=== PATIENT | female | born 1985 | race Caucasian/White ===

== ENCOUNTER 2024-09-08 08:59 | Outpatient (RCR) | payer BC, SELFPAY | END 2024-09-09 10:42 | disposition home or self-care (01) | LOC: PT 08:59 | PROVIDERS: PCP Family Medicine; Visit Provider Family Medicine | DX: M79.7 Fibromyalgia (principal); G43.909 Migraine, unspecified, not intractable, without status migrainosus | CPT/HCPCS: 97750 ==

== ENCOUNTER 2025-01-13 14:43 | Outpatient (OUT) | payer BC, SELFPAY ==
--- OUTSIDE RECORDS SUMMARY | 2025-01-13 14:45 | XMS_ITS | Encounter Summary ---
Author Organization [facility] Address [address] [place] [address] Care Team Providers Care Equipment Man Name Role Phone Evangelist Saucedo MD Primary Care Provider [phone] Evangelist Saucedo MD Unavailable Evangelist Saucedo MD Unavailable Encounter Details Date Type Department Care Team (Late Contact Info) Description 10/18/2024 Abstract [facility] [place] [facility] 112 [facility] 110 [place] [address] Evangelist Saucedo MD 112 [facility] 110 [place] [address] Social History Tobacco Use Types Packs/Day Years Used Date Smoking Tobacco: Every Day Cigarettes Smokeless Tobacco: Never Comments:6-10 cigarettes/day Alcohol Use Standard Drinks/Week Comments Yes 0 (1 standard drink = 0.6 oz pure alcohol) 1-2 drinks 2-4 times/month, 1-2 cups per day(soda) PHQ-2 Answer Date Recorded Patient Health Questionnaire-2 Score 0 09/21/2024 Comments Unknown Sex and Gender Information Value Date Recorded Sex Assigned at Not on file Legal Sex Female 7:11 PM EDT Gender Identity Not on file Sexual Orientation Not on file documented as of this encounter Plan of Treatment Upcoming Encounters Date Type Department Care Team (Late Contact Info) Description 01/24/2025 2:30 PM EDT Ancillary Procedure [facility] [address] [place] [address] [place] [address] 01/24/2025 3:00 PM EDT Ancillary Procedure [facility] [address] [place] [address] [place] [address] 03/15/2025 3:30 PM EST Office [facility] [place] [facility] [address] [facility] 110 [place] [address] Evangelist Saucedo MD [address] [facility] 110 [place] [address] documented as of this encounter Visit Diagnoses Not on filedocumented in this encounter Care Teams Equipment Man Relationship Specialty Start Date End Date Evangelist Saucedo MD [address] [facility] 110 [place] [address] PCP - General Family Medicine 09/10/22 Evangelist Saucedo MD [address] [facility] 110 [place] [address] PCP - [facility] 07/27/20 Evangelist Saucedo MD [address] [facility] 110 [place] [address] Family Medicine 09/10/22 documented as of this encounter
--- OUTSIDE RECORDS SUMMARY | 2025-01-13 14:45 | XMS_ITS | Encounter Summary ---
Author Organization [facility] Address [address] [place] [address] Care Team Providers Care Performance Improvement Analyst Name Role Phone Evangelist Saucedo MD Primary Care Provider [phone] Evangelist Saucedo MD Unavailable Evangelist Saucedo MD Unavailable Encounter Details Date Type Department Care Team (Late Contact Info) Description 02/11/2023 Abstract [facility] [place] [facility] 112 [facility] 110 [place] [address] Evangelist Saucedo MD 112 [facility] 110 [place], [place] [id number] Social History Tobacco Use Types Packs/Day Years Used Date Smoking Tobacco: Every Day Cigarettes Comments:6-10 cigarettes/day Alcohol Use Standard Drinks/Week Comments Yes 0 (1 standard drink = 0.6 oz pure alcohol) 1-2 drinks 2-4 times/month, 1-2 cups per day(soda) PHQ-2 Answer Date Recorded Patient Health Questionnaire-2 Score 1 12/04/2022 Comments Unknown Sex and Gender Information Value Date Recorded Sex Assigned at Not on file Legal Sex Female 7:11 PM EDT Gender Identity Not on file Sexual Orientation Not on file documented as of this encounter Plan of Treatment Upcoming Encounters Date Type Department Care Team (Late Contact Info) Description 01/24/2025 2:30 PM EDT Ancillary Procedure [facility] [address] [place] [address] [place] [address] 01/24/2025 3:00 PM EDT Ancillary Procedure [facility] [address] [place] [address] [place] [id number] 03/15/2025 3:30 PM EST [facility] [place] [facility] [address] [facility] 110 [place] [address] Evangelist Saucedo MD [address] [facility] 110 [place] [address] documented as of this encounter Visit Diagnoses Not on filedocumented in this encounter Care Teams Performance Improvement Analyst Relationship Specialty Start Date End Date Evangelist Saucedo MD [address] [facility] 110 [place] [address] PCP - General Family Medicine 09/10/22 Evangelist Saucedo MD [address] [facility] 110 [place] [address] PCP - [facility] 07/27/20 Evangelist Saucedo MD [address] [facility] 110 [place] [address] Family Medicine 09/10/22 documented as of this encounter
--- OUTSIDE RECORDS SUMMARY | 2025-01-13 14:45 | XMS_ITS | Encounter Summary ---
Author Organization [facility] Address [address] [place] [address] Care Team Providers Care Field Producer Name Role Phone Evangelist Saucedo MD Primary Care Provider [phone] Evangelist Saucedo MD Unavailable Evangelist Saucedo MD Unavailable Encounter Details Date Type Department Care Team (Late st Contact Info) Description 09/16/2022 Abstract [facility] [address] [id number] Alexander Nunez DO [address] [address] Social History Tobacco Use Types Packs/Day Years Used Date Smoking Tobacco: Every Day Cigarettes Alcohol Use Standard Drinks/Week Comments Yes 0 (1 standard drink = 0.6 oz pure alcohol) Caffeine intake 1-2 cups per day(soda) Comments Unknown Sex and Gender Information Value Date Recorded Sex Assigned at Not on file Legal Sex Female 7:11 PM EDT Gender Identity Not on file Sexual Orientation Not on file documented as of this encounter Plan of Treatment Upcoming Encounters Date Type Department Care Team (Late st Contact Info) Description 01/24/2025 2:30 PM EDT Ancillary Procedure [facility] [address] [place] [address] [place] [address] 01/24/2025 3:00 PM EDT Ancillary Procedure [facility] [address] [place] [address] [place] [address] 03/15/2025 3:30 PM EST [facility] [place] [facility] [address] [facility] 110 [place] [address] Evangelist Saucedo MD [address] [facility] 110 [place] [address] documented as of this encounter Visit Diagnoses Not on filedocumented in this encounter Care Teams Field Producer Relationship Specialty Start Date End Date Evangelist Saucedo MD [address] [facility] 110 [place] [address] PCP - General Family Medicine 09/10/22 Evangelist Saucedo MD [address] [facility] 110 [place] [address] PCP - [facility] 07/27/20 Evangelist Saucedo MD [address] [facility] 110 [place] [address] Family Medicine 09/10/22 documented as of this encounter
--- OUTSIDE RECORDS SUMMARY | 2025-01-13 14:45 | XMS_ITS | Encounter Summary ---
Author Organization [facility] Address [address] [place] [address] Care Team Providers Care Calender Inspector Name Role Phone Evangelist Saucedo MD Primary Care Provider [phone] Evangelist Saucedo MD Unavailable Evangelist Saucedo MD Unavailable Encounter Details Date Type Department Care Team (Late Contact Info) Description 12/11/2022 Abstract [facility] [place] [facility] 112 [facility] 110 [place] [address] Evangelist Saucedo MD 112 [facility] 110 [place] [address] Social History Tobacco Use Types Packs/Day Years Used Date Smoking Tobacco: Every Day Cigarettes Tobacco Cessation:Ready to Q uit: Not Asked; Counseling Given: Not Answered Comments:6-10 cigarettes/day Alcohol Use Standard Drinks/Week Comments [...] Imaging [address] [place] [address] [place] [address] 01/24/2025 3:00 PM EDT Ancillary Procedure [facility] [address] [facility] 130 [place] [address] 03/15/2025 3:30 PM EST Office Visit [facility] [place] [facility] [address] [facility] 110 [place] [address] Evangelist Saucedo MD [address] [facility] 110 [place] [address] documented as of this encounter Visit Diagnoses Not on filedocumented in this encounter Care Teams Calender Inspector Relationship Specialty Start Date End Date Evangelist Saucedo MD [address] [facility] 110 [place] [address] PCP - General Family Medicine 09/10/22 Evangelist Saucedo MD [address] [facility] 110 [place] [address] PCP - [facility] 07/27/20 Evangelist Saucedo MD [address] [facility] 110 [place] [address] Family Medicine 09/10/22 documented as of this encounter
--- OUTSIDE RECORDS SUMMARY | 2025-01-13 14:45 | XMS_ITS | Encounter Summary ---
Author Organization [facility] Address [address] [place] [address] Care Team Providers Care Tip Out Worker Name Role Phone Evangelist Saucedo MD Primary Care Provider [phone] Evangelist Saucedo MD Unavailable Evangelist Saucedo MD Unavailable Encounter Details Date Type Department Care Team (Late Contact Info) Description 08/23/2024 Abstract [facility] [place] [facility] 112 [facility] 110 [place] [address] Evangelist Saucedo MD [address] [facility] 110 [place], [place] [address] Social History Tobacco Use Types Packs/Day Years Used Date Smoking Tobacco: Every Day Cigarettes Comments:6-10 cigarettes/day Alcohol Use Standard Drinks/Week Comments Yes 0 (1 standard drink = 0.6 oz pure alcohol) 1-2 drinks 2-4 times/month, 1-2 cups per day(soda) PHQ-2 Answer Date Recorded Patient Health Questionnaire-2 Score 1 08/18/2024 Comments Unknown Sex and Gender Information Value Date Recorded Sex Assigned at Not on file Legal Sex Female 7:11 PM EDT Gender Identity Not on file Sexual Orientation Not on file documented as of this encounter Plan of Treatment Upcoming Encounters Date Type Department Care Team (Late Contact Info) Description 01/24/2025 2:30 PM EDT Ancillary Procedure [facility] [address] [place] [address] [place] [address] 01/24/2025 3:00 PM EDT Ancillary Procedure [facility] [address] [place] [address] [place] [address] 03/15/2025 3:30 PM EST [facility] [place] [facility] [address] [facility] 110 [place] [address] Evangelist Saucedo MD [address] [facility] 110 [place] [address] documented as of this encounter Visit Diagnoses Not on filedocumented in this encounter Care Teams Tip Out Worker Relationship Specialty Start Date End Date Evangelist Saucedo MD [address] [facility] 110 [place] [address] PCP - General Family Medicine 09/10/22 Evangelist Saucedo MD [address] [facility] 110 [place] [address] PCP - [facility] 07/27/20 Evangelist Saucedo MD [address] [facility] 110 [place] [address] Family Medicine 09/10/22 documented as of this encounter
--- OUTSIDE RECORDS SUMMARY | 2025-01-13 14:45 | XMS_ITS | Encounter Summary ---
Author Organization [facility] Address [address] [facility] [place] [address] Care Team Providers Care Engraver Name Role Phone Evangelist Saucedo MD Primary Care Provider [phone] Evangelist Saucedo MD Unavailable Evangelist Saucedo MD Unavailable Reason for Visit * Reason Comments Med Refill Encounter Details Date Type Department Care Team (Late st Contact Info) Description 01/03/2025 Refill [facility] [address] [facility] 110 [place] [address] Cristiane Huffman PA 112 [facility] 110 [place] [address] Fibromyalgia Social History Tobacco Use Types Packs/Day Years Used Date Smoking Tobacco: Every Day Cigarettes Smokeless Tobacco: Never Comments:6-10 cigarettes/day Alcohol Use Standard Drinks/Week Comments Yes 0 (1 standard drink = 0.6 oz pure alcohol) 1-2 drinks 2-4 times/month, 1-2 cups per day(soda) PHQ-2 Answer Date Recorded Patient Health Questionnaire-2 Score 2 12/15/2024 Comments Unknown Sex and Gender Information Value Date Recorded Sex Assigned at Not on file Legal Sex Female 7:11 PM EDT Gender Identity Not on file Sexual Orientation Not on file documented as of this encounter Miscellaneous Notes * Telephone Encounter - AURORA Harris - 01/03/2025 10:44 AM EDT OARRS reviewed, Rx sent into patient's pharmacy. documented in this encounter Plan of Treatment Upcoming Encounters Date Type Department Care Team (Late st Contact Info) Description 01/24/2025 2:30 PM EDT Ancillary Procedure [facility] [address] [place] [address] [place] [address] 01/24/2025 3:00 PM EDT Ancillary Procedure [facility] [address] [place] 130 [place] [address] 03/15/2025 3:30 PM EST [facility] [place] [facility] [address] [facility] 110 [place] [address] Evangelist Saucedo MD [address] [place] 110 [place] [address] documented as of this encounter Visit Diagnoses Diagnosis Fibromyalgia Unspecified myalgia and myositis documented in this encounter Care Teams Engraver Relationship Specialty Start Date End Date Evangelist Saucedo MD [address] [facility] 110 [place] [address] PCP - General Family Medicine 09/10/22 Evangelist Saucedo MD [address] [facility] 110 [place] [address] PCP - [facility] 07/27/20 Evangelist Saucedo MD [address] [facility] 110 [place] [address] Family Medicine 09/10/22 documented as of this encounter
--- OUTSIDE RECORDS SUMMARY | 2025-01-13 14:45 | XMS_ITS | Encounter Summary ---
Author Organization [facility] Address [address] [facility] [place] [address] Care Team Providers Care Job Analysis Manager Name Role Phone Evangelist Saucedo MD Primary Care Provider [phone] Evangelist Saucedo MD Unavailable Evangelist Saucedo MD Unavailable Reason for Visit * Reason Comments Med Refill Encounter Details Date Type Department Care Team (Late st Contact Info) Description 10/17/2023 [facility] [address] [facility] 110 [place] [address] Cristiane Huffman, PA 112 [facility] 110 [place] [address] Systemic lupus erythematosus, unspecified SLE type, unspecified organ involvement status (HCC) Social History Tobacco Use Types Packs/Day Years [...] encounter Miscellaneous Notes * Telephone Encounter - Renetta Lombardo - 10/27/2023 1:25 PM EDT Unable to contact letter sent * Telephone Encounter - Renetta Lombardo - 10/20/2023 10:36 AM EDT Lvm on phi=one her number says it is disconnneted * Telephone Encounter - AURORA Harris - 10/20/2023 10:00 AM EDT OARRS reviewed, Rx sent into patient's pharmacy. Please help pt get rescheduled for her NS appt, she is a month overdue for a follow up. Last refilluntil seen. documented in this encounter Plan of Treatment Upcoming Encounters Date Type Department Care Team (Late st Contact Info) Description 01/24/2025 2:30 PM EDT Ancillary Procedure [facility] [address] [facility] [place] [place] [address] 01/24/2025 3:00 PM EDT Ancillary Procedure [facility] [address] [place] [address] [place] [address] 03/15/2025 3:30 PM EST Office Visit [facility] [place] [facility] 112 [facility] 110 [place] [address] Evangelist Saucedo MD [address] [facility] 110 [place] [address] documented as of this encounter Visit Diagnoses Diagnosis Systemic lupus erythematosus, unspecified SLE type, unspecified organ involvement status (HCC) documented in this encounter Care Teams Job Analysis Manager Relationship Specialty Start Date End Date Evangelist Saucedo MD [address] [facility] 110 [place] [address] PCP - General Family Medicine 09/10/22 Evangelist Saucedo MD [address] [facility] 110 [place] [address] PCP - [place] 07/27/20 Evangelist Saucedo MD [address] [facility] 110 [place] [address] Family Medicine 09/10/22 documented as of this encounter
--- OUTSIDE RECORDS SUMMARY | 2025-01-13 14:45 | XMS_ITS | Clinical Summary ---
Author Organization [facility] Healthcare Address [address] [place] [address] Care Team Providers Care Food Dehydrator Operator Name Role Phone Evangelist Saucedo MD Primary Care Provider [phone] Evangelist Saucedo MD Unavailable Evangelist Saucedo MD Unavailable Allergies Active Allergy Reactions Criticality Noted Date Comments Bupropion Rash,Unknown Low 04/02/2021 Hydrocodone GI intolerance,Unknown 04/02/2021 Sulfa Antibiotics Unknown 09/18/2022 Medications cholecalciferol (Vitamin D3) 25 MCG (1000 UT) tablet 1 (one) time each day at the same time. Active estradiol (Estrace) 1 MG tablet 1 (one) time each day at the same time. 03/28/20 22 Active estrogens, conjugated, (Premarin) 0.625 MG tablet Take 0.625 mg by mouth 1 (one) time each day at the same time. 1/2 tab daily as needed 03/28/20 22 Active fluticasone (Flonase) 50 MCG/ACT nasal spray 1 (one) time each day at the same time. 04/02/20 21 Active zinc 30 MG tablet 1 (one) time each day at the same time. Active atorvastatin (Lipitor) 20 MG tabletIndications :Mixed hyperlipidemia Take 1 tablet (20 mg) by mouth Daily 100 tablet 3 02/16/20 24 2024 Active metoprolol succinate XL (Toprol-XL) 50 MG 24 hr tabletIndications :Anxiety TAKE 1 TABLET BY MOUTH EVERY DAY 100 tablet 3 05/12/19 25 Active gabapentin (Neurontin) 400 MG capsuleIndication s:Fibromyalgia TAKE 1 CAPSULE IN THE MORNING, EVENING, AND BEFORE BEDTIME 270 capsule 3 05/24/19 25 Active fremanezumab (Ajovy) 225 MG/1.5ML auto-injectorIndi cations:Intractab le chronic migraine without aura and with status migrainosus INJECT 1 PEN UNDER SKIN ONCE EVERY 30 DAYS 1 each 11 06/16/19 25 Active ondansetron ODT (Zofran-ODT) 4 MG disintegrating tabletIndications :Nausea DISSOLVE 1 TABLET ON THE TONGUE 3 TIMES A DAY 18 tablet 4 07/14/19 25 Active Nurtec 75 MG tablet dispersibleIndica tions:Intractable chronic migraine with aura with status migrainosus PLACE 1 TABLET UNDER THE TONGUE EVERY OTHER DAY NEEDED FOR MIGRAINES 8 tablet 5 07/14/19 25 Active venlafaxine XR (Effexor XR) 150 MG 24 hr capsuleIndication s:Recurrent major depressive disorder, in partial remission Take 2 capsules (300 mg) by mouth Daily Do not crush or chew. 60 capsule 08/19/19 25 2025 Active esomeprazole (NexIUM) [address] capsuleIndication s:Gastro-esophage al reflux disease without esophagitis Take 1 capsule (40 mg) by mouth in the morning. Take before meals. Do not open capsule. 90 capsule 3 12/16/19 25 2025 Active predniSONE (Deltasone) 10 MG tabletIndications :Fibromyalgia TAKE 1 TABLET (10 MG) BY MOUTH DAILY. 30 tablet 12/22/19 25 Active traMADol (Ultram) 50 MG tabletIndications :Systemic lupus erythematosus, unspecified SLE type, unspecified organ involvement status (HCC) Take 1 tablet (50 mg) by mouth every 4 (four) hours if needed for severe pain for up to 14 days 84 tablet 12/29/19 25 Active carisoprodol (Soma) 350 MG tabletIndications :Fibromyalgia Take 1 tablet (350 mg) by mouth 4 (four) times a day as needed for muscle spasms for up to 14 days 56 tablet 01/04/20 25 2024 Active clonazePAM (KlonoPIN) 1 MG tabletIndications :Adjustment disorder with anxiety Take 1 tablet (1 mg) by mouth 2 (two) times a day as needed for anxiety 60 tablet 01/06/20 25 2024 Active Ascorbic Acid (Vitamin C) 500 MG capsule as directed Orally 2024 Discontinued esomeprazole (NexIUM) [address] capsuleIndication s:Gastroesophagea l reflux disease, unspecified whether esophagitis present Take 1 capsule (20 mg) by mouth in the morning. Take before meals. 100 capsule 3 08/20/19 25 2024 Discontinued(I neffective) predniSONE (Deltasone) 10 MG tabletIndications :Fibromyalgia TAKE 1 TABLET (10 MG) BY MOUTH DAILY. 30 tablet 10/19/19 25 2024 Discontinued traMADol (Ultram) 50 MG tabletIndications :Systemic lupus erythematosus, unspecified SLE type, unspecified organ involvement status (HCC) Take 1 tablet (50 mg) by mouth every 4 (four) hours if needed for severe pain for up to 14 days 84 tablet 12/04/19 25 2024 Discontinued(R eorder) carisoprodol (Soma) 350 MG tabletIndications :Fibromyalgia Take 1 tablet (350 mg) by mouth 4 (four) times a day as needed for muscle spasms for up to 14 days 56 tablet 12/04/19 25 2024 Discontinued clonazePAM (KlonoPIN) 1 MG tabletIndications :Adjustment disorder with anxiety Take 1 tablet (1 mg) by mouth in the morning and 1 tablet (1 mg) before bedtime. 60 tablet 12/10/19 25 2024 Discontinued traMADol (Ultram) 50 MG tabletIndications :Systemic lupus erythematosus, unspecified SLE type, unspecified organ involvement status (HCC) Take 1 tablet (50 mg) by mouth every 4 (four) hours if needed for severe pain for up to 14 days 84 tablet 12/16/19 25 2024 Discontinued carisoprodol (Soma) 350 MG tabletIndications :Fibromyalgia TAKE 1 TABLET BY MOUTH 4 TIMES A DAY NEEDED FOR MUSCLE SPASMS FOR UP TO 14 DAYS 56 tablet 12/21/19 25 2024 Discontinued Active Problems Problem Noted Date Diagnosed Date Migraine headache 06/12/2023 Assessment & Plan (02/16/2024 9:39 AM EDT): Do the Nurtec every other day towards end of month Anxiety 11/26/2022 Assessment & Plan (06/21/2024 9:30 AM EST): Patient's Medicine is effective at controlling symptoms at current dose and frequency. PDMP reviewed with no evidence of overuse and abuse D/W patient to avoid use of benzodiazepines when consuming alcohol Advised against operating heavy machinery and driving long distances while on medicines. Assessment & Plan (02/16/2024 9:35 AM EDT): Patient's Medicine is effective at controlling symptoms at current dose and frequency. PDMP reviewed with no evidence of overuse and abuse D/W patient to avoid use of benzodiazepines when consuming alcohol Advised against operating heavy machinery and driving long distances while on medicines. Assessment & Plan (01/27/2023 10:08 AM EDT): Patient's Medicine is effective at controlling symptoms at current dose and frequency. PDMP reviewed with no evidence of overuse and abuse D/W patient to avoid use of benzodiazepines when consuming alcohol Advised against operating heavy machinery and driving long distances while on medicines. Assessment & Plan (11/26/2022 11:56 AM EDT): Consider Paxil F/U week of January Recurrent major depressive disorder, in partial remission 11/26/2022 Assessment & Plan (02/16/2024 9:35 AM EDT): This is a chronic medical condition that is stable since last assessment. No changes in treatment are suggested at this time. Continue Current meds. Assessment & Plan (11/26/2022 11:57 AM EDT): Sunlight and exercise Personal history of colonic polyps 10/17/2022 Blood in stool 10/17/2022 Adjustment disorder with anxiety 09/18/2022 Dysfunction of left eustachian tube 09/18/2022 Ear congestion 09/18/2022 Elevated antinuclear antibody (YANICK) level 2022 Assessment & Plan (01/27/2023 10:08 AM EDT): F/U with Rhematology Fibromyalgia 09/18/2022 Hot flashes 09/18/2022 Assessment & Plan (11/26/2022 11:57 AM EDT): Black Cohash no relief Hot flashes due to menopause 09/18/2022 Menopausal and postmenopausal disorder Other insomnia 09/18/2022 Smoker 09/18/2022 Status post hysterectomy 09/18/2022 Systemic lupus erythematosus 09/18/2022 Tension headache 09/18/2022 Encounters Date Type Department Care Team Description 01/05/2025 Refill [facility] [address] [place] [address] [place] [address] Cristiane Huffman PA Adjustment disorder with anxiety 01/03/2025 Refill [facility] [place] [facility] [address] [place] [address] Cristiane Huffman PA Fibromyalgia 12/31/2024 Orders Only [facility] [place] [facility] [address] [place] [address] Evangelist Saucedo MD Abnormal mammogram of right breast; Abnormal ultrasound of breast 12/28/2024 Refill [facility] [place] [facility] [address] [place] [address] Cristiane Huffman PA Systemic lupus erythematosus, unspecified SLE type, unspecified organ involvement status (HCC) 12/21/2024 Refill [facility] [place] [facility] [address] [place] [address] Ghislaine Cain TRANSIT MIXER OPERATOR Fibromyalgia 12/21/2024 Abstract [facility] [facility] [address] [place] [address] Evangelist Saucedo MD 12/20/2024 Refill [facility] [address] [place] [address] Cristiane Huffman PA Fibromyalgia 12/15/2024 11:30 AM EDT Office Visit [facility] [facility] [address] [facility] [address] [place] [address] Ghislaine Cain NP Fibromyalgia (Primary Dx); Systemic lupus erythematosus, unspecified SLE type, unspecified organ involvement status (HCC); Chronic pain syndrome; Lumbar radiculopathy; Gastro-esophageal reflux disease without esophagitis 12/15/2024 Refill [facility] [place] [facility] [address] [facility] [address] [place] [address] Ghislaine Cain NP Systemic lupus erythematosus, unspecified SLE type, unspecified organ involvement status (HCC) 12/15/2024 Bamboo flowsheet [facility] [place] [facility] [address] [facility] [address] [place] [address] Ghislaine Cain NP 12/15/2024 Travel 12/09/2024 Refill [facility] [place] [facility] [address] [facility] [address] [place] [address] Evangelist Saucedo MD Adjustment disorder with anxiety 12/06/2024 Abstract [facility] [place] [facility] [address] [facility] [address] [place] [address] Evangelist Saucedo MD 12/03/2024 Refill [facility] [place] [facility] [address] [facility] [address] [place] [address] Cristiane Huffman PA Systemic lupus erythematosus, unspecified SLE type, unspecified organ involvement status (HCC) 12/02/2024 Refill [facility] [place] [facility] [address] [facility] [address] [place] [address] Cristiane Huffman, PA Fibromyalgia 12/02/2024 [facility] [place] [facility] [address] [facility] [address] [place] [address] Evangelist Saucedo MD Systemic lupus erythematosus, unspecified SLE type, unspecified organ involvement status (HCC) 11/16/2024 Refill [facility] [place] [facility] [address] [facility] [address] [place] [address] Cristiane Huffman PA Systemic lupus erythematosus, unspecified SLE type, unspecified organ involvement status (HCC); Fibromyalgia 11/09/2024 Refill [facility] [place] [facility] [address] [facility] [address] [place] [address] Evangelist Saucedo MD Adjustment disorder with anxiety 10/31/2024 Refill [facility] [place] [facility] [address] [place] [address] [place] [address] Cristiane Huffman PA Fibromyalgia; Systemic lupus erythematosus, unspecified SLE type, unspecified organ involvement status (HCC) 10/19/2024 Refill [facility] [place] [facility] [address] [facility] [address] [place] [address] Katya Hernandez MA Fibromyalgia 10/18/2024 Abstract [facility] [facility] [address] [facility] [address] [place] [address] Evangelist Saucedo MD 10/18/2024 Refill [facility] [place] [facility] [address] [facility] [address] [place] [address] Ghislaine Cain, TRANSIT MIXER OPERATOR Fibromyalgia 10/16/2024 Refill [facility] [place] [facility] [address] [facility] [address] [place] [address] Evangelist Saucedo MD Systemic lupus erythematosus, unspecified SLE type, unspecified organ involvement status (HCC) 10/14/2024 [facility] [place] [facility] [address] [facility] [address] [place] [address] Cristiane Huffman PA Fibromyalgia from Last 3 Months Immunizations Immunization Administration Dates Next Due Influenza, injectable, MDCK, preservative free, quadrivalent 01/04/2023,01/18/2022,03/06/2020 Influenza, injectable, quadr ivalent, preservative free 01/26/2022,02/13/2021 Moderna Bivalent Booster Vaccination 05/17/2022 Family History Medical History Relation Name Comments Hypertension Father Relation Name Status Comments Father Mother Alive Social History Tobacco Use Types Packs/Day Years Used Date Smoking Tobacco: Every Day Cigarettes Smokeless Tobacco: Never Tobacco Cessation:Ready to Q uit: Not Asked; Counseling Given: Yes Comments:6-10 cigarettes/day Alcohol Use Standard Drinks/Week Comments [...] on file Sexual Orientation Not on file Last Filed Vital Signs Vital Sign Reading Time Taken Comments Blood Pressure 128/80 12/15/2024 11:35 AM EDT Pulse 83 12/15/2024 11:35 AM EDT Temperature - - Respiratory Rate 16 12/15/2024 11:35 AM EDT Oxygen Saturation 99% 12/15/2024 11:35 AM EDT Inhaled Oxygen Concentration - - Weight 97.5 kg (215 lb) 12/15/2024 11:35 AM EDT Height 162.6 cm (5' 4 ) 12/15/2024 11:35 AM EDT Body Mass Index 36.9 12/15/2024 11:35 AM EDT Plan of Treatment Upcoming Encounters Date Type Department Care Team (Late st Contact Info) Description 01/24/2025 2:30 PM EDT Ancillary Procedure [facility] [address] [facility] [address] [place] [address] 01/24/2025 3:00 PM EDT Ancillary Procedure [facility] [address] [facility] [address] [place] [address] 03/15/2025 3:30 PM EST Office Visit [facility] [place] [facility] [address] [facility] 110 [place] [address] Evangelist Saucedo MD [address] [facility] 110 [place] [address] Health Maintenance Due Date Last Done Comments Influenza Vaccine (#1) 2024 3, 01/26/2022, 01/18/2022, Additional history exists Mammogram 07/14/2025 07/14/2024, 07/05/2024 Procedures Procedure Name Priority Date/Time Associated Diagnosis Comments BI MAMMOGRAM DIAGNOSTIC TOMOSYNTHESIS RIGHT Routine 07/14/2024 2:45 PM EDT Abnormal mammogram from Last 3 Months or Most Recently Relevant to Health Maintenance Results * Right diagnostic mammogram with tomosynthesis (07/14/2024 2:45 PM EDT) Anatomical Region Laterality Modality Breast Right Mammography 07/15/2024 3:24 PM EDT Impressions 07/15/2024 3:31 PM EDT Previously noted small asymmetric density in the inferomedial aspect of the right breast near the midline is again identified, likely representing a cyst when correlated with ultrasound study. When correlating all studies no convincing evidence of neoplasm. Follow-up diagnostic mammogram study of the right breast as well as ultrasound study of the right breast in 6 months recommended to assess stability. BIRADS 3 - Probably Benign Findings DENSITY: There are scattered areas of fibroglandular density. FOLLOW-UP: Diagnostic Mammogram in 6 Months, breast ultrasound in 6 months Board Certified Radiologists. Accredited by the ACR and FDA. MAMMOGRAPHY IS VERY IMPORTANT TO YOUR HEALTH. THE [employer] GUIDELINES RECOMMEND THAT WOMEN 40 YEARS OF AGE AND OLDER SHOULD HAVE A MAMMOGRAM EVERY YEAR. A REMINDER LETTER WILL BE SENT AT THE APPROPRIATE TIME. ELECTRONICALLY SIGNED BY: Zackary Rouse 07/15/2024 3:31 PM EDT EXAMINATION: BI MAMMOGRAM DIAGNOSTIC TOMOSYNTHESIS RIGHT CLINICAL HISTORY: abnormal mammogram TECHNIQUE: Diagnostic digital mammogram study of the right breast was performed with 2D and 3D tomosynthesis imaging. Study was compared to the screening mammogram study of the breasts dated 07/05/2024 and ultrasound study of the right breast dated 07/14/2024. FINDINGS: Coned-down compression views as well as true lateral view of the right breast were obtained. Previously noted 5 x 4 mm asymmetric density is again identified in the inferomedial aspect of the right breast near the midline. Ultrasound study demonstrates what is likely a small cyst at this level. Other possibility would be less likely. When correlating all studies no convincing evidence of neoplasm. Follow-up diagnostic mammogram study of the right breast as well as ultrasound study of the right breast in 6 months is recommended to assess stability. Partially visualized axillary lymph nodes are noted which appear grossly unremarkable. Procedure Note Vadim Mcwilliams MD - 07/15/2024 EXAMINATION: BI MAMMOGRAM DIAGNOSTIC TOMOSYNTHESIS RIGHT CLINICAL HISTORY: abnormal mammogram TECHNIQUE: Diagnostic digital mammogram study of the right breast wasperformed with 2D and 3D tomosynthesis imaging. Study was compared to thescreening mammogram study of the breasts dated 07/05/2024 and ultrasoundstudy of the right breast dated 07/14/2024. FINDINGS: Coned-down compression views as well as true lateral view of theright breast were obtained. Previously noted 5 x 4 mm asymmetric densityis again identified in the inferomedial aspect of the right breast nearthe midline. Ultrasound study demonstrates what is likely a small cyst atthis level. Other possibility would be less likely. When correlating allstudies no convincing evidence of neoplasm. Follow-up diagnostic mammogramstudy of the right breast as well as ultrasound study of the right breastin 6 months is recommended to assess stability. Partially visualized axillary lymph nodes are noted which appear grosslyunremarkable. IMPRESSION: Previously noted small asymmetric density in the inferomedial aspect ofthe right breast near the midline is again identified, likely representinga cyst when correlated with ultrasound study. When correlating all studiesno convincing evidence of neoplasm. Follow-up diagnostic mammogram study of the right breast as well asultrasound study of the right breast in 6 months recommended to assessstability. BIRADS 3 - Probably Benign Findings DENSITY: There are scattered areas of fibroglandular density. FOLLOW-UP: Diagnostic Mammogram in 6 Months, breast ultrasound in 6months Board Certified Radiologists. Accredited by the ACR and FDA. MAMMOGRAPHY IS VERY IMPORTANT TO YOUR HEALTH. THE V[employer]IAN CANCER SOCIETYGUIDELINES RECOMMEND THAT WOMEN 40 YEARS OF AGE AND OLDER SHOULD HAVE AMAMMOGRAM EVERY YEAR. A REMINDER LETTER WILL BE SENT AT THE APPROPRIATE TIME. ELECTRONICALLY SIGNED BY: Vadim Mcwilliams M.D. Evangelist Saucedo MD IMG BI PROCEDURES Final Result from Last 3 Months or Most Recently Relevant to Health Maintenance Insurance BCBS Care Teams Food Dehydrator Operator Relationship Specialty Start Date End Date Evangelist Saucedo MD [address] [facility] [address] [place] [address] PCP - General Family Medicine 09/10/22 Evangelist Saucedo MD [address] [facility] [address] [place] [address] PCP - [facility] 07/27/20 Evangelist Saucedo MD [address] [facility] [address] [place] [address] Family Medicine 09/10/22
--- OUTSIDE RECORDS SUMMARY | 2025-01-13 14:45 | XMS_ITS | Encounter Summary ---
Author Organization [facility] Address [address] [place] [address] Care Team Providers Care Flat Cutter Name Role Phone Evangelist Saucedo MD Primary Care Provider [phone] Evangelist Saucedo MD Unavailable Evangelist Saucedo MD Unavailable Encounter Details Date Type Department Care Team (Late Contact Info) Description 09/09/2024 Abstract [facility] [place] [facility] [address] [facility] [address] [place] [address] Evangelist Saucedo MD 112 [facility] 110 [place], [place] [id number] Social History Tobacco Use Types Packs/Day Years [...] 01/24/2025 2:30 PM EDT Ancillary Procedure [facility] [address] [place] [place] [address] 01/24/2025 3:00 PM EDT Ancillary Procedure [facility] [address] [place] [address] [place] [id number] 03/15/2025 3:30 PM EST [facility] [place] [facility] [address] [facility] [address] [place] [address] Evangelist Saucedo MD [address] [facility] [address] [place] [address] documented as of this encounter Visit Diagnoses Not on filedocumented in this encounter Care Teams Flat Cutter Relationship Specialty Start Date End Date Evangelist Saucedo MD [address] [facility] [address] [place] [address] PCP - General Family Medicine 09/10/22 Evangelist Saucedo MD [address] [facility] [address] [place] [address] PCP - [facility] 07/27/20 Evangelist Saucedo MD [address] [facility] [address] [place] [address] Family Medicine 09/10/22 documented as of this encounter
--- OUTSIDE RECORDS SUMMARY | 2025-01-13 14:45 | XMS_ITS | Encounter Summary ---
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 [employer] Name Role Phone Evangelist Saucedo MD Primary Care Provider [phone] Evangelist Saucedo MD Unavailable Evangelist Saucedo MD Unavailable Reason for Visit * Reason Comments Med Refill Encounter Details Date Type Department Care Team (Late st Contact Info) Description 01/05/2025 Refill [facility] [address] [facility] [address] [place] [address] Cristiane Huffman PA [address] [facility] 110 [place], [place] [id number] Adjustment disorder with anxiety Social History Tobacco Use Types Packs/Day Years [...] * Telephone Encounter - AURORA Harris - 01/05/2025 10:53 AM EDT OARRS reviewed, Rx sent into patient's pharmacy. documented in this encounter Plan of Treatment Upcoming Encounters Date Type Department Care Team (Late st Contact Info) Description 01/24/2025 2:30 PM EDT Ancillary Procedure [facility] [address] [place] [address] [place] [address] 01/24/2025 3:00 PM EDT Ancillary Procedure [facility] [address] [place] [address] [place] [address] 03/15/2025 3:30 PM EST [facility] [place] [facility] [address] [place] [address] [place] [address] Evangelist Saucedo MD [address] [place] [address] [place] [address] documented as of this encounter Visit Diagnoses Diagnosis Adjustment disorder with anxiety Adjustment disorder with anxiety documented in this encounter Care Teams 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
--- OUTSIDE RECORDS SUMMARY | 2025-01-13 14:45 | XMS_ITS | Encounter Summary ---
Author Organization [facility] Address [address] [place] [address] Care Team Providers Care Director Custom Name Role Phone Evangelist Saucedo MD Primary Care Provider Evangelist Saucedo MD Unavailable Evangelist Saucedo MD Unavailable Encounter Details Date Type Department Care Team (Late Contact Info) Description 12/31/2024 Orders Only [facility] [address] [facility] 110 [place] [phone] Evangelist Saucedo MD 112 [facility] 110 [place], [place] [phone] Abnormal mammogram of right breast; Abnormal ultrasound of breast Social History Tobacco Use Types Packs/Day Years [...] 01/24/2025 2:30 PM EDT Ancillary Procedure [facility] [address] [place] [address] [place] [address] 01/24/2025 3:00 PM EDT Ancillary Procedure [facility] [address] [facility] 130 [place] [address] 03/15/2025 3:30 PM EST Office Visit [facility] [place] [address] [facility] 110 [place] [address] Evangelist Saucedo MD [address] [facility] 110 [place] [address] Scheduled Orders Name Type Priority Associated Diagnoses Orde r Schedule Right breast US limited Imaging Routine Abnormal ultrasound of breast Expected: 12/31/2024, Expires: 03/02/2026 Right diagnostic mammogram with tomosynthesis Imaging Routine Abnormal mammogram of right breast Expected: 12/31/2024, Expires: 03/02/2026 documented as of this encounter Visit Diagnoses Diagnosis Abnormal mammogram of right breast Abnormal ultrasound of breast documented in this encounter Care Teams Director Custom Relationship Specialty Start Date End Date Evangelist Saucedo MD [address] [facility] 110 [place] [address] PCP - General Family Medicine 09/10/22 Evangelist Saucedo MD [address] [facility] 110 [place] [address] PCP - [facility] 07/27/20 Evangelist Saucedo MD [address] [facility] 110 [place] [address] Family Medicine 09/10/22 documented as of this encounter
--- OUTSIDE RECORDS SUMMARY | 2025-01-13 14:45 | XMS_ITS | Encounter Summary ---
Author Organization [facility] Address [address] [facility] [place] [address] Care Team Providers Care Tub Attendant Name Role Phone Evangelist Saucedo MD Primary Care Provider [phone] Evangelist Saucedo MD Unavailable Evangelist Saucedo MD Unavailable Reason for Visit * Reason Comments Med Refill Encounter Details Date Type Department Care Team (Late st Contact Info) Description 07/24/2024 [facility] [address] [facility] 110 [place] [address] Evangelist Saucedo MD 112 [facility] 110 [place], [place] [phone] Systemic lupus erythematosus, unspecified SLE type, unspecified organ involvement status (HCC) Social History Tobacco Use Types Packs/Day Years Used Date Smoking Tobacco: Every Day Cigarettes Comments:6-10 cigarettes/day Alcohol Use Standard Drinks/Week Comments Yes 0 (1 standard drink = 0.6 oz pure alcohol) 1-2 drinks 2-4 times/month, 1-2 cups per day(soda) PHQ-2 Answer Date Recorded Patient Health Questionnaire-2 Score 0 07/26/2024 Comments Unknown Sex and Gender Information Value Date Recorded Sex Assigned at Not on file Legal Sex Female 7:11 PM EDT Gender Identity Not on file Sexual Orientation Not on file documented as of this encounter Functional Status * Over the past 2 weeks, how often have you been bothered by any of the following problems? Question Answer Date of Assessment Author Little interest or pleasure in doing things Not at all 07/26/2024 7:17 AM EDT Katya Hernandez MA Feeling down, depressed, or hopeless Not at all 07/26/2024 7:17 AM EDT Katya Hernandez MA Patient Health Questionnaire -2 Score 0 07/26/2024 7:17 AM EDT Katya Hernandez MA documented as of this encounter Plan of Treatment Upcoming Encounters Date Type Department Care Team (Late st Contact Info) Description 01/24/2025 2:30 PM EDT Ancillary Procedure [facility] [address] [place] [address] [place] [address] 01/24/2025 3:00 PM EDT Ancillary Procedure [facility] [address] [place] [address] [place] [address] 03/15/2025 3:30 PM EST Office Visit [facility] [place] [facility] [address] [facility] 110 [place] [address] Evangelist Saucedo MD [address] [place] [address] [place] [address] documented as of this encounter Visit Diagnoses Diagnosis Systemic lupus erythematosus, unspecified SLE type, unspecified organ involvement status (HCC) documented in this encounter Care Teams Tub Attendant Relationship Specialty Start Date End Date Evangelist Saucedo MD [address] [place] [address] [place] [address] PCP - General Family Medicine 09/10/22 Evangelist Saucedo MD [address] [place] [address] [place] [address] [facility] - [facility] 07/27/20 Evangelist Saucedo MD [address] [place] [address] [place] [address] Family Medicine 09/10/22 documented as of this encounter
--- OUTSIDE RECORDS SUMMARY | 2025-01-13 14:45 | XMS_ITS | Encounter Summary ---
Author Organization [facility] Address [address] [place] [address] Care Team Providers Care Sample Wrapper Name Role Phone Evangelist Saucedo MD Primary Care Provider [phone] Evangelist Saucedo MD Unavailable Evangelist Saucedo MD Unavailable Encounter Details Date Type Department Care Team (Late Contact Info) Description 12/06/2024 Abstract [facility] [place] [facility] 112 [facility] 110 [place] [address] Evangelist Saucedo MD 112 [facility] 110 [place] [address] Social History Tobacco Use Types [...] Imaging [address] [place] [address] [place] [address] 01/24/2025 3:00 PM EDT Ancillary Procedure [facility] [address] [place] [address] [place] [address] 03/15/2025 3:30 PM EST Office Visit [facility] [place] [facility] [address] [facility] 110 [place] [address] Evangelist Saucedo MD [address] [facility] 110 [place] [address] documented as of this encounter Visit Diagnoses Not on filedocumented in this encounter Care Teams Sample Wrapper Relationship Specialty Start Date End Date Evangelist Saucedo MD [address] [facility] 110 [place] [address] PCP - General Family Medicine 09/10/22 Evangelist Saucedo MD [address] [facility] 110 [place] [address] PCP - [facility] 07/27/20 Evangelist Saucedo MD [address] [facility] 110 [place] [address] Family Medicine 09/10/22 documented as of this encounter
--- OUTSIDE RECORDS SUMMARY | 2025-01-13 14:45 | XMS_ITS | Encounter Summary ---
Author Organization [facility] Address [address] [place] [address] Care Team Providers Care Dramatic Reader Name Role Phone Evangelist Saucedo MD Primary Care Provider [phone] Evangelist Saucedo MD Unavailable Evangelist Saucedo MD Unavailable Encounter Details Date Type Department Care Team (Late Contact Info) Description 02/24/2023 Abstract [facility] [place] [facility] 112 [facility] 110 [place] [address] Evangelist Saucedo MD 112 [facility] 110 [place], [place] [phone] Social History Tobacco Use Types Packs/Day Years [...] 01/24/2025 2:30 PM EDT Ancillary Procedure [facility] [address] [place] [address] [place] [address] 01/24/2025 3:00 PM EDT Ancillary Procedure [facility] [address] [place] [address] [place] [address] 03/15/2025 3:30 PM EST Office Visit [facility] [place] [facility] [address] [facility] 110 [place] [address] Evangelist Saucedo MD [address] [facility] 110 [place] [address] documented as of this encounter Visit Diagnoses Not on filedocumented in this encounter Care Teams Dramatic Reader Relationship Specialty Start Date End Date Evangelist Saucedo MD [address] [facility] 110 [place] [address] PCP - General Family Medicine 09/10/22 Evangelist Saucedo MD [address] [facility] 110 [place] [address] PCP - [facility] 07/27/20 Evangelist Saucedo MD [address] [facility] 110 [place] [address] Family Medicine 09/10/22 documented as of this encounter
--- OUTSIDE RECORDS SUMMARY | 2025-01-13 14:45 | XMS_ITS | Encounter Summary ---
Author Organization [facility] Address [address] [facility] [place] [address] Care Team Providers Care Contact Lens Inspector Name Role Phone Evangelist Saucedo MD Primary Care Provider [phone] Evangelist Saucedo MD Unavailable Evangelist Saucedo MD Unavailable Reason for Visit * Reason Comments Med Refill Encounter Details Date Type Department Care Team (Late st Contact Info) Description 06/09/2023 Refill [facility] [address] [facility] 110 [place] [address] Evangelist Saucedo MD 112 [facility] 110 [place], [place] [phone] Adjustment disorder with anxiety Social History Tobacco [...] * Telephone Encounter - Renetta Lombardo - 06/10/2023 10:52 AM EST PT SCHEDULED * Telephone Encounter - AURORA Harris - 06/09/2023 5:04 PM EST Patient is overdue for follow up. Short term supply sent in for patient. Needs to schedule an appointment. Last refill until seen. Please help pt get set up for an appt documented in this encounter Plan of Treatment Upcoming Encounters Date Type Department Care Team (Late st Contact Info) Description 01/24/2025 2:30 PM EDT Ancillary Procedure [facility] [address] [place] [address] [facility] [place] [address] 01/24/2025 3:00 PM EDT Ancillary Procedure [facility] [address] [place] [address] [place] [address] 03/15/2025 3:30 PM EST [facility] [place] [facility] [address] [place] [address] [place] [address] Evangelist Saucedo MD [address] [place] [address] [place] [address] documented as of this encounter Visit Diagnoses Diagnosis Adjustment disorder with anxiety Adjustment disorder with anxiety documented in this encounter Care Teams Contact Lens Inspector Relationship Specialty Start Date End Date Evangelist Saucedo MD [address] [place] [address] [place] [address] PCP - General Family Medicine 09/10/22 Evangelist Saucedo MD [address] [place] [address] [place] [address] PCP - [facility] 07/27/20 Evangelist Saucedo MD [address] [place] [address] [place] [address] Family Medicine 09/10/22 documented as of this encounter
--- OUTSIDE RECORDS SUMMARY | 2025-01-13 14:45 | XMS_ITS | Encounter Summary ---
Author Organization [facility] Address [address] [place] [address] Care Team Providers Care Wellness Instructor Name Role Phone Evangelist Saucedo MD Primary Care Provider [phone] Evangelist Saucedo MD Unavailable Evangelist Saucedo MD Unavailable Encounter Details Date Type Department Care Team (Late Contact Info) Description 12/21/2024 Abstract [facility] [place] [facility] 112 [facility] 110 [place] [address] Evangelist Saucedo MD 112 [facility] 110 [place] [address] Social History Tobacco Use Types [...] Imaging [address] [place] [address] [place] [address] 01/24/2025 3:00 PM EDT Ancillary Procedure [facility] [address] [place] [address] [place] [address] 03/15/2025 3:30 PM EST Office [facility] [place] [facility] [address] [email or web address] 110 [place] [address] Evangelist Saucedo MD [address] [facility] 110 [place] [address] documented as of this encounter Visit Diagnoses Not on filedocumented in this encounter Care Teams Wellness Instructor Relationship Specialty Start Date End Date Evangelist Saucedo MD [address] [facility] 110 [place] [address] PCP - General Family Medicine 09/10/22 Evangelist Saucedo MD [address] [facility] 110 [place] [address] PCP - [facility] 07/27/20 Evangelist Saucedo MD [address] [facility] 110 [place] [address] Family Medicine 09/10/22 documented as of this encounter
--- OUTSIDE RECORDS SUMMARY | 2025-01-13 14:45 | XMS_ITS | Encounter Summary ---
Author Organization [facility] Address [address] [place] [address] Care Team Providers Care Rail Crew Member Name Role Phone Evangelist Saucedo MD Primary Care Provider [phone] Evangelist Saucedo MD Unavailable Evangelist Saucedo MD Unavailable Encounter Details Date Type Department Care Team (Late Contact Info) Description 10/05/2024 Abstract [facility] [place] [facility] 112 [facility] 110 [place] [address] Evangelist Saucedo MD 112 [facility] 110 [place] [address] Social History Tobacco Use Types [...] Imaging [address] [place] [address] [place] [address] 01/24/2025 3:00 PM EDT Ancillary Procedure [facility] [address] [place] [address] [place] [address] 03/15/2025 3:30 PM EST [facility] [place] [facility] [address] [facility] 110 [place] [address] Evangelist Saucedo MD [address] [facility] 110 [place] [address] documented as of this encounter Visit Diagnoses Not on filedocumented in this encounter Care Teams Rail Crew Member Relationship Specialty Start Date End Date Evangelist Saucedo MD [address] [facility] 110 [place] [address] PCP - General Family Medicine 09/10/22 Evangelist Saucedo MD [address] [facility] 110 [place] [address] PCP - [facility] 07/27/20 Evangelist Saucedo MD [address] [facility] 110 [place] [address] Family Medicine 09/10/22 documented as of this encounter
--- OUTSIDE RECORDS SUMMARY | 2025-01-13 14:45 | XMS_ITS | Encounter Summary ---
Author Organization [facility] Address [address] [place] [address] Care Team Providers Care Blade Filer Name Role Phone Evangelist Saucedo MD Primary Care Provider [phone] Evangelist Saucedo MD Unavailable Evangelist Saucedo MD Unavailable Encounter Details Date Type Department Care Team (Late st Contact Info) Description 08/16/2024 Abstract [facility] [place] [facility] 112 [facility] 110 [place] [address] Evangelist Saucedo MD 112 [facility] 110 [place] [address] Social History Tobacco Use Types [...] Little interest or pleasure in doing things Several days 08/18/2024 11:00 AM EDT ESPERANZA ZAMORA Feeling down, depressed, or hopeless Not at all 08/18/2024 11:00 AM ESPERANZA LION Patient Health Questionnaire -2 Score 1 08/18/2024 11:00 AM ESPERANZA LION * If you checked off any problems on this questionnaire so far, Question Answer Date of Assessment Author How difficult have these problems made it for you to do your work, take care of things at home, or get along with other people? Not difficult at all 08/18/2024 11:00 AM EDESPERANZA DEL TORO documented as of this encounter Plan of Treatment Upcoming Encounters Date Type Department Care Team (Late st Contact Info) Description 01/24/2025 2:30 PM EDT Ancillary Procedure [facility] [address] [place] [address] [facility] [address] 01/24/2025 3:00 PM EDT Ancillary Procedure [facility] [address] [place] [address] [facility] [address] 03/15/2025 3:30 PM EST Office Visit [facility] [place] [facility] [address] [place] [address] [place] [address] Evangelist Saucedo MD [address] [place] [address] [place] [address] documented as of this encounter Visit Diagnoses Not on filedocumented in this encounter Care Teams Blade Filer Relationship Specialty Start Date End Date Evangelist Saucedo MD [address] [place] [address] [place] [address] PCP - General Family Medicine 09/10/22 Evangelist Saucedo MD [address] [place] [address] [place] [address] PCP - [facility] 07/27/20 Evangelist Saucedo MD [address] [place] [address] [place] [address] Family Medicine 09/10/22 documented as of this encounter
--- NOTE | 2025-01-13 14:46 | MR_ITS ---
The [address] [address] Patient Name: WILVER NEGRETE MRN: [facility]:[id number] date: 1985 Sex: F Assigned Patient Location: MRI Current Patient Location: Accession/Order Number: [id number] Exam Date: 01/13/2025 15:10 Report Date: 01/14/2025 17:15 At the request of: JOAN BRODY Procedure: MR lumbar spine wo con MRI of the lumbar spine performed without contrast INDICATION: Lumbar radiculopathy, back pain, fibromyalgia, lupus COMPARISON: None FINDINGS: Lumbar vertebral heights, alignment, bone marrow signal and disc spaces are preserved. Conus medullaris terminates normally at L1-L2. Tyew-sm-rvbalijh multilevel facet arthropathy greatest L4-S1. Otherwise no significant disc disease, disc protrusion, central canal or neural from narrowing identified. Paraspinal soft tissues are unremarkable. MR/MR lumbar spine wo con IMPRESSION: Multilevel navx-tt-[id number] posterior element degeneration greatest lumbosacral junction. Otherwise no significant canal or neural foraminal narrowing identified. Impression dictated by: Tani Mackenzie M.D. 01/14/2025 5:15 PM Dictation Location: [place] [address] Electronically authenticated by: [id number] Y Date: 01/14/2025 17:15
== END 2025-01-13 14:44 | disposition home or self-care (01) ==
LOC: MRI 14:43
PROVIDERS: PCP Family Medicine; Visit Provider Nurse Practitioner Family
DX: M54.16 Radiculopathy, lumbar region (principal); M51.369 Other intervertebral disc degeneration, lumbar region without mention of lumbar back pain or lower extremity pain
CPT/HCPCS: 72148

== ENCOUNTER 2025-01-19 13:47 | Outpatient (OUT) | payer BC, SELFPAY ==
--- NOTE | 2025-01-19 15:22 | P.CN_ITS ---
Consult Note: HPI Data of Consult Patient: known to practice within the last 3 years Requesting Physician: Juanita Cooley NP Primary Care Provider: MATTHEW MURPHY Consult Narrative Reason for consult: low back pain Narrative: Ramy Hernandez a pleasant 39 year old female presents for evaluation and management of chronic low back pain unresponsive to > 6 weeks of HEP, heat, ice, tylenol, NSAIDs. currently utilizing soma, gabapentin, tramadol, klonopin, prednisone, effexor without improvement. pain today 6/10 all over increasing to 10/10 at times. denies fall/injury. Recently completed lumbar MRI which is consistent with facet changes. cc:: CC: Juanita Cooley NP Exam Constitutional Documenting provider has reviewed patient's vital signs: yes Common normals: no apparent distress, oriented x3, healthy appearing, alert and well nourished General appearance: cooperative HENMT Common normals: normocephalic, hearing grossly normal bilaterally and moist oral mucous membranes Head and scalp: normocephalic Eye Common normals: PERRL Pupil: PERRL Neck & C-Spine Common normals: full ROM General: normal visual inspection Chest Common normals: inspection of chest normal Respiratory Common normals: normal respiratory effort, no retractions and no use of accessory muscles Back & Pelvis Lumbar spine/lower back: ROM limited, pain with ROM, lumbar spinal tenderness and straight leg raise negative bilaterally Other: diffuse hyperalgesia moderate pain to touch positive facet loading bilaterally Neuro Common normals: oriented x3 Sensorium/orientation: alert Psych Common normals: mental status grossly normal, thought process normal, cooperative, affect normal, speech normal and activity/motor behavior normal Speech: normal speech Thought process: normal thought process Results Additional Findings Additional findings: If on a controlled substance or opioids, I have checked an [place] report on this patient and there are no aberrancies noted in the prescribing history.??If on a controlled substance or opioid a drug screen was completed and reviewed within the last year, and if there has not been a drug screen completed we ordered one today to monitor higher risk, state monitored pain medication use. As part of providing excellent, safe, comprehensive care, the following was com pleted at our patient's visit: 1. A medication reconciliation and review to ensure accurate knowledge of current/active medications, including asking our patients to inform us about any iuws-fll-ozbeliu medications or herbal remedies/nutritional supplements/alternative remedies. 2. A review to specifically ensure our patients have had annual screening for screening for depression, screening for tobacco use, and screening for unhealthy alcohol use. For concerning screenings had a discussion with the patient, provided patient education, and recommended follow-up with primary care provider when appropriate. If patient noted with a risk of falling, they received education on strength, gait, and balance training to prevent future risk of falling. Portions of this note may have been carried over from the previous visit and updated as appropriate. Please note this office utilizes paper charting in addition to the electronic medical record. A list of current medications, vitals, and PMH is available there as the clinical staff outside of myself do not have access to [facility] [employer] charting during the clinic day operations. As part of providing quality co mprehensive care the current medications, vitals, and PMH were reviewed in the paper chart. Assessment and Plan Assessment and Plan (1) Lumbar spondylosis: (2) Fibromyalgia: Plan The patient has had over 3 months of moderate to severe low back pain with functional impairment and inadequate response to conservative care including NSAIDS (unless there are contraindication such as concurrent blood thinners), multiple oral or topical pain medications, and home exercise program/physical therapy.? Patient has completed >6 weeks of guided home exercise program and/or formal physical therapy program without relief of their symptoms.? The Oswestry Disability Index was completed, and the patient scored a 54%.? Extensive conversation today regarding her chronic pain, pt is having trouble establishing with rheumatology due to FM although she has lupus. advised to talk with PCP about referral to larger health system like [facility]. We did review her lumbar MRI, discuss anti-inflammatory diet plans, exercise/stretching recommendations for FM. At this time will trial bilateral L4-5 L5-S1 MBB x2 for facet mediated low back pain in consideration of RFA. f/u after each injection. continue medications through PCP.
== END 2025-01-19 13:48 | disposition home or self-care (01) ==
LOC: PM 13:48
PROVIDERS: PCP Family Medicine; Visit Provider Nurse Practitioner
DX: M47.816 Spondylosis without myelopathy or radiculopathy, lumbar region (principal); M79.7 Fibromyalgia
CPT/HCPCS: G0463

== ENCOUNTER 2025-02-07 12:48 | Day surgery (SDC) | payer BC, SELFPAY ==
[2025-02-07 12:55] VITALS: BP 149/90; PULSE 89; TEMP 36.6; O2SAT 100
[2025-02-07 13:04] VITALS: BP 152/72; BP 163/93; PULSE 93; PULSE 98; O2SAT 96
[2025-02-07] MEDS: LIDOCAINE HCL 2% 400 MG/20 ML MDV INJ (13:06)
[2025-02-07] MEDS: BUPIVACAINE HCL 0.25% PF 25 MG/10 ML VIAL 8 ML INJ (13:06)
--- NOTE | 2025-02-07 13:11 | W.PM.PROCNOT ---
Date of procedure: 02/07/25 Pre-op diagnosis: Pain due to lumbar spondylosis without myelopathy Post-op diagnosis: same as pre-op Procedure: Procedure: Bilateral L4-5, L5-S1 medial branch block Medications: Bupivacaine 0.25% 6cc The patient was seen and examined in the preoperative holding area.? An informed consent was obtained and placed on the chart.? The patient was brought to the medical procedure unit and placed in the prone position.? A timeout was completed verifying correct patient, procedure site, positioning, plan, and special equipment.? Using aseptic technique, the needle was placed at left L4. Under direct fluoroscopic visualization a Quincke-tipped spinal needle was advanced to the junction of the superior articulating process with the transverse process at the designated medial branch segment.? Preceded by negative aspiration, the above-mentioned injectate was placed in 1 mL aliquots.? The procedure was repeated at left L5, S1.? The needle was removed and insertion site was covered. The same procedure, at the same levels, was completed on the right side. The patient was taken to the postprocedural recovery area and monitored for an appropriate length of time before found suitable for discharge in the company of a responsible adult. Anesthesia: Local Surgeon: Ajay Ortega Pathology: none sent Condition: stable Disposition: no change
== END 2025-02-07 13:12 | disposition home or self-care (01) ==
PROVIDERS: PCP Family Medicine; Visit Provider Anesthesiology
DX: M47.816 Spondylosis without myelopathy or radiculopathy, lumbar region (principal); M54.50 Low back pain, unspecified
CPT/HCPCS: 64493; 64494; J0665

== ENCOUNTER 2025-02-09 14:35 | Outpatient (OUT) | payer BC, SELFPAY ==
--- NOTE | 2025-02-09 14:55 | PM.CN ---
Consult Note: HPI Data of Consult Patient: known to practice within the last 3 years Requesting Physician: Juanita Cooley NP Primary Care Provider: MATTHEW MURPHY Consult Narrative Reason for consult: low back pain Narrative: Ramy Hernandez a pleasant 39 year old female presents for evaluation and management of chronic low back pain unresponsive to > 6 weeks of HEP, heat, ice, tylenol, NSAIDs. currently utilizing soma, gabapentin, tramadol, klonopin, prednisone, effexor without improvement. pain today 7/10 all over increasing to 10/10 at times. denies fall/injury. Recently completed lumbar MRI which is consistent with facet changes. on 02/07/25 underwent bilateral L4-5 L5-S1 facet medial branch block #1 preop pain up to 10/10 post op pain 0/10 for 2 hours, noted >80% improvement in pain and functional ability. cc:: CC: Juanita Cooley NP [facility] Medical History (Updated 01/28/25 @ 08:56 by Marilu Boston) Obesity ?E66.9 - Obesity, unspecified (ICD-10) Upper back pain ?M54.9 - Dorsalgia, unspecified (ICD-10) Neck pain ?M54.2 - Cervicalgia (ICD-10) Low back pain ?M54.50 - Low back pain, unspecified (ICD-10) Systemic lupus ?M32.9 - Systemic lupus erythematosus, unspecified (ICD-10) Fibromyalgia ?M79.7 - Fibromyalgia (ICD-10) Depression ?F32.A - Depression, unspecified (ICD-10) Anxiety ?F41.9 - Anxiety disorder, unspecified (ICD-10) Acid reflux ?K21.9 - Gastro-esophageal reflux disease without esophagitis (ICD-10) Kidney stone ?N20.0 - Calculus of kidney (ICD-10) Smoker ?F17.200 - Nicotine dependence, unspecified, uncomplicated (ICD-10) High cholesterol ?E78.00 - Pure hypercholesterolemia, unspecified (ICD-10) Hypertension ?I10 - Essential (primary) hypertension (ICD-10) Surgical History (Updated 01/28/25 @ 08:56 by Marilu Boston) History of endometrial ablation ?Z98.890 - Other specified postprocedural states (ICD-10) H/O laparoscopy ?Z98.890 - Other specified postprocedural states (ICD-10) Hx of cystoscopy ?Z98.890 - Other specified postprocedural states (ICD-10) H/O: hysterectomy ?Z90.710 - Acquired absence of both cervix and uterus (ICD-10) H/O rectal polypectomy ?Z98.890 - Other specified postprocedural states (ICD-10) ?Z87.19 - Personal history of other diseases of the digestive system (ICD-10) Hx of cholecystectomy ?Z90.49 - Acquired absence of other specified parts of digestive tract (ICD-10) Meds Home Medications and Allergies Home Medications ?Medication ?Instructions ?Recorded ?Confirmed ?Type NURTEC 01/19/25 History atorvastatin 20 mg tablet (Lipitor) 20 mg PO DAILY 01/19/25 02/07/25 History carisoprodol 350 mg tablet (Soma) 350 mg PO QID 01/19/25 02/07/25 History clonazepam 1 mg tablet (Klonopin) 1 mg PO BID 01/19/25 02/07/25 History fremanezumab-vfrm 225 mg/1.5 mL mg subcut .EVERY MONTH 01/19/25 History subcutaneous auto-injector (Ajovy) gabapentin 400 mg capsule 400 mg PO TID 01/19/25 02/07/25 History metoprolol succinate 50 mg 50 mg PO DAILY 01/19/25 02/07/25 History tablet,extended release 24 hr (Toprol XL) prednisone 10 mg tablet 10 mg PO DAILY 01/19/25 02/07/25 History tramadol 50 mg tablet 50 mg PO Q4H 01/19/25 02/07/25 History venlafaxine 150 mg 150 mg PO DAILY 01/19/25 02/07/25 History capsule,extended release 24 hr (Effexor XR) Allergies Allergy/AdvReac Type Severity Reaction Status Date / Time bupropion Allergy Unknown Unknown Verified 02/07/25 12:49 Sulfa (Sulfonamide Allergy Unknown Unknown Verified 02/07/25 12:49 Antibiotics) Exam Constitutional Documenting provider has reviewed patient's vital signs: yes Common normals: no apparent distress, oriented x3, healthy appearing, alert and well nourished General appearance: cooperative HENMT Common normals: normocephalic, hearing grossly normal bilaterally and moist oral mucous membranes Head and scalp: normocephalic Eye Common normals: PERRL Pupil: PERRL Neck & C-Spine Common normals: full ROM General: normal visual inspection Chest Common normals: inspection of chest normal Respiratory Common normals: normal respiratory effort, no retractions and no use of accessory muscles Back & Pelvis Lumbar spine/lower back: ROM limited, pain with ROM, lumbar spinal tenderness and straight leg raise negative bilaterally Other: diffuse hyperalgesia moderate pain to touch positive facet loading bilaterally Neuro Common normals: oriented x3 Sensorium/orientation: alert Psych Common normals: mental status grossly normal, thought process normal, cooperative, affect normal, speech normal and activity/motor behavior normal Speech: normal speech Thought process: normal thought process Results Additional Findings Additional findings: If on a controlled substance or opioids, I have checked an [place] report on this patient and there are no aberrancies noted in the prescribing history.??If on a controlled substance or opioid a drug screen was completed and reviewed within the last year, and if there has not been a drug screen completed we ordered one today to monitor higher risk, state monitored pain medication use. As part of providing excellent, safe, comprehensive care, the following was completed at our patient's visit: 1. A medication reconciliation and review to ensure accurate knowledge of current/active medications, including asking our patients to inform us about any stkg-ejh-tgjbemk medications or herbal remedies/nutritional supplements/alternative remedies. 2. A review to specifically ensure our patients have had annual screening for screening for depression, screening for tobacco use, and screening for unhealthy alcohol use. For concerning screenings had a discussion with the patient, provided patient education, and recommended follow-up with primary care provider when appropriate. If patient noted with a risk of falling, they received education on strength, gait, and balance training to prevent future risk of falling. Portions of this note may have been carried over from the previous visit and updated as appropriate. Please note this office utilizes paper charting in addition to the electronic medical record. A list of current medications, vitals, and PMH is available there as the clinical staff outside of myself do not have access to [employer] charting during the clinic day operations. As part of providing quality comprehensive care the current medications, vitals, and PMH were reviewed in the paper chart. Assessment and Plan Assessment and Plan (1) Lumbar spondylosis: (2) Fibromyalgia: Plan The patient has had over 3 months of moderate to severe low back pain with functional impairment and inadequate response to conservative care including NSAIDS (unless there are contraindication such as concurrent blood thinners), multiple oral or topical pain medications, and home exercise program/physical therapy.? Patient has completed >6 weeks of guided home exercise program and/or formal physical therapy program without relief of their symptoms.? The Oswestry Disability Index was completed, and the patient scored a 56%.? bilateral L4-5 L5-S1 MBB #2 in consideration of RFA under fluoroscopy for facet mediated pain continue TENS, noted significant improvement continue medication management through PCP, continue NNCP with our office f/u after injection
== END 2025-02-09 14:36 | disposition home or self-care (01) ==
LOC: PM 14:35
PROVIDERS: PCP Family Medicine; Visit Provider Nurse Practitioner
DX: M47.816 Spondylosis without myelopathy or radiculopathy, lumbar region (principal); M79.7 Fibromyalgia
CPT/HCPCS: G0463

== ENCOUNTER 2025-02-21 11:07 | Day surgery (SDC) | payer BC, SELFPAY ==
--- OUTSIDE RECORDS SUMMARY | 2025-02-21 11:12 | XMS_ITS | Encounter Summary ---
Author Organization [facility] Address [address] [facility] [place] [address] Care Team Providers Care Supervisor [employer] Name Role Phone Evangelist Saucedo MD Primary Care Provider [phone] Evangelist Saucedo MD Unavailable Evangelist Saucedo MD Unavailable Reason for Visit * ReasonCommentsMed Refill Encounter Details DateTypeDepartmentCare Team (Latest Contact Info)Iqciwvfljar46/15/2025[facility] [address] [facility] [address] [place] [address] Cristiane Huffman, [place] [address] [facility] [address] [place] [address] Systemic lupus erythematosus, unspecified SLE type, unspecified organ involvement status (HCC); Fibromyalgia Social History Tobacco UseTypesPacks/DayYears UsedDateSmoking Tobacco: Every DayCigarettes Smokeless Tobacco: Never Comments:6-10 cigarettes/day Alcohol UseStandard Drinks/WeekCommentsYes0 (1 standard drink = 0.6 oz pure alcohol)1-2 drinks 2-4 times/month, 1-2 cups per day(soda)PHQ-2AnswerDate RecordedPatient Health Questionnaire-2 [id number] Sex and Gender InformationValueDate RecordedSex Assigned at BirthNot on file Legal BidObtnvb35/15/2023 7:11 PM EDTGender IdentityNot on fileSexual OrientationNot on filedocumented as of this encounter Plan of Treatment DateTypeDepartmentCare Team (Latest Contact Info)Qehjlmxprtc48/18/2025 3:30 PM ESTOffice Visit [facility] [place] [facility] [address] [facility] [address] [place] [phone] Evangelist Saucedo MD [address] [facility] [address] [place] [address] documented as of this encounter Visit Diagnoses Diagnosis Systemic lupus erythematosus, unspecified SLE type, unspecified organ involvement status (HCC) Fibromyalgia Unspecified myalgia and myositis documented in this encounter Care Teams Team MemberRelationshipSpecialtyStart DateEnd Date Evangelist Saucedo MD [address] [facility] [address] [place] [address] [facility] - [facility] Evangelist Saucedo MD [address] [facility] [address] [place] [address] [facility] Evangelist Saucedo MD [address] [facility] [address] [place] [address] Family Medicine09/10/22documented as of this encounter
--- OUTSIDE RECORDS SUMMARY | 2025-02-21 11:12 | XMS_ITS | Clinical Summary ---
Author Organization [facility] Healthcare Address [address] [place] [address] Care Team Providers Care Internal Review And Audit Compliance Name Role Phone Evangelist Murphy MD Primary Care Provider [phone] Evangelist Murphy MD Unavailable Evangelist Murphy MD Unavailable Allergies Active AllergyReactionsCriticalityNoted DateCommentsBupropionRash,UnknownLow 04/02/2021HydrocodoneGI intolerance,Fdfivtm8204/02/2021ulfa AntibioticsUnknown 09/18/2022 Medications MedicationSigDispense QuantityRefillsLast FilledStart DateEnd DateStatus cholecalciferol (Vitamin D3) 25 MCG (1000 UT) tablet 1 (one) time each day at the same time.Active estradiol (Estrace) 1 MG tablet 1 (one) time each day at the same time.03/28/2022ctive estrogens, conjugated, (Premarin) 0.625 MG tablet Take 0.625 mg by mouth 1 (one) time each day at the same time. 1/2 tab daily as wefrxg8703/28/2022ctive fluticasone (Flonase) 50 MCG/ACT nasal spray 1 (one) time each day at the same time.04/02/2021ctive zinc 30 MG tablet 1 (one) time each day at the same time.Active metoprolol succinate XL (Toprol-XL) 50 MG 24 hr tablet Indications:AnxietyTAKE 1 TABLET BY MOUTH EVERY DAY 100 tablet 5Active gabapentin (Neurontin) 400 MG capsule Indications:FibromyalgiaTAKE 1 CAPSULE IN THE MORNING, EVENING, AND BEFORE BEDTIME 270 capsule 5Active fremanezumab (Ajovy) 225 MG/1.5ML auto-injector Indications:Intractable chronic migraine without aura and with status migrainosusINJECT 1 PEN UNDER SKIN ONCE EVERY 30 DAYS 1 each 5Active venlafaxine XR (Effexor XR) 150 MG 24 hr capsule Indications:Recurrent major depressive disorder, in partial remissionTake 2 capsules (300 mg) by mouth Daily Do not crush or chew. 60 capsule /6Active esomeprazole (NexIUM) [address] capsule Indications:Gastro-esophageal reflux disease without esophagitisTake 1 capsule (40 mg) by mouth in the morning. Take before meals. Do not open capsule. 90 capsule /6Active predniSONE (Deltasone) 10 MG tablet Indications:FibromyalgiaTAKE 1 TABLET (10 MG) BY MOUTH DAILY. 30 tablet 5Active Nurtec 75 MG tablet dispersible Indications:Intractable chronic migraine with aura with status migrainosus DISSOLVE 1 TABLET ON THE TONGUE ONCE EVERY OTHER DAY NEEDED FOR MIGRAINES 8 tablet 5Active ondansetron ODT (Zofran-ODT) 4 MG disintegrating tablet Indications:NauseaDISSOLVE 1 TABLET ON THE TONGUE 3 TIMES A DAY 18 tablet 5Active clonazePAM (KlonoPIN) 1 MG tablet Indications:Adjustment disorder with anxietyTake 1 tablet (1 mg) by mouth 2 (two) times a day as needed for anxiety 60 tablet 5Active atorvastatin (Lipitor) 20 MG tablet Indications:Mixed hyperlipidemiaTAKE 1 TABLET BY MOUTH EVERY DAY 90 tablet 5Active traMADol (Ultram) 50 MG tablet Indications:Systemic lupus erythematosus, unspecified SLE type, unspecified organ involvement status (HCC)TAKE 1 TABLET (50 MG) BY MOUTH EVERY 4 (FOUR) HOURS IF NEEDED FOR SEVERE PAIN FOR UP TO 14 DAYS 84 tablet 5Active carisoprodol (Soma) 350 MG tablet Indications:FibromyalgiaTAKE 1 TABLET BY MOUTH 4 TIMES A DAY NEEDED FOR MUSCLE SPASMS FOR UP TO 14 DAYS 56 tablet 5Active atorvastatin (Lipitor) 20 MG tablet Indications:Mixed hyperlipidemiaTake 1 tablet (20 mg) by mouth Daily 100 tablet 310//597003/12/2024Discontinued ondansetron ODT (Zofran-ODT) 4 MG disintegrating tablet Indications:NauseaDISSOLVE 1 TABLET ON THE TONGUE 3 TIMES A DAY 18 tablet 403///Discontinued Nurtec 75 MG tablet dispersible Indications:Intractable chronic migraine with aura with status migrainosusPLACE 1 TABLET UNDER THE TONGUE EVERY OTHER DAY NEEDED FOR MIGRAINES 8 tablet 503//Discontinued clonazePAM (KlonoPIN) 1 MG tablet Indications:Adjustment disorder with anxietyTake 1 tablet (1 mg) by mouth 2 (two) times a day as needed for anxiety 60 tablet /05/2024Discontinued(Reorder) carisoprodol (Soma) 350 MG tablet Indications:FibromyalgiaTake 1 tablet (350 mg) by mouth 4 (four) times a day as needed for muscle spasms for up to 14 days 56 tablet /06/2024Discontinued traMADol (Ultram) 50 MG tablet Indications:Systemic lupus erythematosus, unspecified SLE type, unspecified organ involvement status (HCC)Take 1 tablet (50 mg) by mouth every 4 (four) hours if needed for severe pain for up to 14 days 84 tablet /06/2024Discontinued carisoprodol (Soma) 350 MG tablet Indications:FibromyalgiaTake 1 tablet (350 mg) by mouth 4 (four) times a day as needed for muscle spasms for up to 14 days 56 tablet /Discontinued traMADol (Ultram) 50 MG tablet Indications:Systemic lupus erythematosus, unspecified SLE type, unspecified organ involvement status (HCC)Take 1 tablet (50 mg) by mouth every 4 (four) hours if needed for severe pain for up to 14 days 84 tablet /Discontinued clonazePAM (KlonoPIN) 1 MG tablet Indications:Adjustment disorder with anxietyTake 1 tablet (1 mg) by mouth 2 (two) times a day as needed for anxiety 60 tablet 10/03/Discontinued(Reorder) Active Problems ProblemNoted DateDiagnosed DateMigraine vbhnxeqp61/15/2024 Assessment & Plan (02/16/2024 9:39 AM EDT): Do the Nurtec every other day towards end of month Wadlhwc9211/26/2022 Assessment & Plan (06/21/2024 9:30 AM EST): [...] (11/26/2022 11:56 AM EDT): Consider Paxil F/U January Recurrent major depressive disorder, in partial fggylruig94/01/2023 Assessment & Plan (02/16/2024 9:35 AM EDT): This is a chronic medical condition that is stable since last assessment. No changes in treatment are suggested at this time. Continue Current meds. Assessment & Plan (11/26/2022 11:57 AM EDT): Sunlight and exercise Personal history of colonic lrzmkn8310/17/2022lood in stool10/17/2022djustment disorder with loxbsas5009/18/2022ysfunction of left eustachian tube09/18/2022Ear sgpgepqvoi61/24/2023Elevated antinuclear antibody (YANICK) level09/18/2022 Assessment & Plan (01/27/2023 10:08 AM EDT): F/U with Rhematology Xdwxoouzwpwg91/24/2023Hot yrqnlak7209/18/2022 Assessment & Plan (11/26/2022 11:57 AM EDT): Black Cohash no relief Hot flashes due to miftpriiy29/24/2023Menopausal and postmenopausal disorder 09/18/2022Other /24/2994Baolmz11/24/2023Status post hysterectomy 09/18/2022Systemic lupus xdnkucobfxaug48/24/2023Tension baatrvhw14/24/2023 Encounters DateTypeDepartmentCare ZxcgCskltihfclr00/15/2025Refill [facility] [address] [facility] [address] [place] [address] Cristiane Huffman PA Systemic lupus erythematosus, unspecified SLE type, unspecified organ involvement status (HCC); Cukyhthqhrhn11/09/2025[facility] [address] [place] [address] [place] [address] Evangelist Murphy MD Mixed bkfqgysuqmschp09/08/2025[facility] [address] [place] [address] [place] [address] Cristiane Huffman PA Adjustment disorder with nwoliyq7801/28/2025[facility] [address] [place] [address] [place] [address] Cristiane Huffman PA Fibromyalgia; Systemic lupus erythematosus, unspecified SLE type, unspecified organ involvement status (HCC); Adjustment disorder with rqetrhb6701/27/2025[facility] [address] [place] [address] [place] [address] Cristiane Huffman PA Adjustment disorder with anxiety; Fibromyalgia; Systemic lupus erythematosus, unspecified SLE type, unspecified organ involvement status (HCC)01/27/2025Refill [facility] [address] [facility] [address] [place] [address] Cristiane Huffman PA Fibromyalgia; Systemic lupus erythematosus, unspecified SLE type, unspecified organ involvement status (HCC)01/25/2025Refill [facility] [address] [facility] [address] [place] [address] Evangelist Murphy MD Intractable chronic migraine with aura with status migrainosus ; Pnysnj1501/24/2025 2:45 PM EDTAncillary Procedure [facility] [address] [place] [place] [address] Abnormal ultrasound of wzhfgr8601/24/2025 2:30 PM EDTAncillary Procedure [facility] [address] [place] [address] Abnormal mammogram of right cukxty9301/24/20252157Tvqoaf82/25/2025Results Follow-Up [facility] [address] [facility] [address] [place] [address] Myla Killian LPN MR LUMBAR SPINE WO CON5Abstract [facility] [address] [facility] [address] [place] [address] Evangelist Murphy MD 01/14/2025linisync Result Encounter [facility] External Department Unsolicited Joan Brody NP 01/14/2025Refill [facility] [address] [facility] [address] [place] [address] Cristiane Huffman PA Systemic lupus erythematosus, unspecified SLE type, unspecified organ involvement status (HCC)01/14/2025Refill [facility] [address] [place] [address] [place] [address] Cristiane Huffman PA Fibromyalgia; Systemic lupus erythematosus, unspecified SLE type, unspecified organ involvement status (HCC)01/05/2025Refill [facility] [place] [facility] [address] [place] [place] [address] Cristiane Huffman PA Adjustment disorder with mjkhpyi6801/03/2025[facility]ill [facility] [address] [place] [address] [place] [address] Cristiane Huffman PA Cjoblztzethj95/05/2025Orders Only [facility] [place] [facility] [address] [place] [address] [place] [address] Evangelist Murphy MD Abnormal mammogram of right breast; Abnormal ultrasound of pobawn5812/28/2024[facility] [address] [place] [address] [place] [address] Cristiane Huffman PA Systemic lupus erythematosus, unspecified SLE type, unspecified organ involvement status (HCC)12/21/2024[facility] [address] [place] [address] [place] [address] Joan Brody NP Lmwhmdowzvms86/26/2025bstract [facility] [place] [facility] [address] [place] [address] [place] [address] Evangelist Murphy MD 12/20/2024Refill [facility] [place] [facility] [address] [place] [address] [place] [address] Cristiane Huffman PA Hcytgoicikkr05/20/2025 11:30 AM EDTOffice Visit [facility] [place] [facility] [address] [place] [address] [place] [address] Joan Brody NP Fibromyalgia (Primary Dx); Systemic lupus erythematosus, unspecified SLE type, unspecified organ involvement status (HCC); Chronic pain syndrome; Lumbar radiculopathy; Gastro-esophageal reflux disease without gucxmujmxxg01/20/2025Refill [facility] [place] [facility] [address] [place] [address] [place] [address] Joan Brody NP Systemic lupus erythematosus, unspecified SLE type, unspecified organ involvement status (HCC)12/15/2024amboo flowsheet [facility] [address] [facility] [address] [place] [address] Joan Brody NP 12/15/20248876Vcjmzi05/14/2025Refill [facility] [address] [facility] [address] [place] [address] Evangelist Murphy MD Adjustment disorder with nmtrqdt4012/06/2024bstract [facility] [address] [facility] [address] [place] [address] Evangelist Murphy MD 12/03/2024Refill [facility] [address] [facility] [address] [place] [address] Cristiane Huffman PA Systemic lupus erythematosus, unspecified SLE type, unspecified organ involvement status (HCC)12/02/2024Refill [facility] [address] [facility] [address] [place] [address] Cristiane Huffman PA Mfmswytcsyso15/07/2025Refill [facility] [address] [facility] [address] [place] [address] Evangelist Murphy MD Systemic lupus erythematosus, unspecified SLE type, unspecified organ involvement status (HCC)from Last 3 Months Immunizations ImmunizationAdministration DatesNext DueInfluenza, injectable, MDCK, preservative free, wotnsiupyizl01/09/2023,01/18/2022,03/06/2020Influenza, injectable, quadrivalent, preservative free01/26/2022,02/13/2021Moderna Bivalent Booster Fwtmaawefxw87/20/2023 Family History Medical HistoryRelationNameCommentsHypertensionFatherRelationNameStatusComments FatherDeceasedMotherAlive Social History Tobacco UseTypesPacks/DayYears UsedDateSmoking Tobacco: Every DayCigarettes Smokeless Tobacco: Never Tobacco Cessation:Ready to Q uit: Not Asked; Counseling Given: Yes Comments:6-10 cigarettes/day Alcohol UseStandard Drinks/WeekCommentsYes0 (1 standard drink = 0.6 oz pure alcohol)1-2 drinks 2-4 times/month, 1-2 cups per day(soda)PHQ-2AnswerDate RecordedPatient Health Questionnaire-2 Vqaae387CommentsUnknown Sex and Gender InformationValueDate RecordedSex Assigned at BirthNot on file Legal AscXmlwaq60/15/2023 7:11 PM EDTGender IdentityNot on fileSexual OrientationNot on file Last Filed Vital Signs Vital SignReadingTime TakenCommentsBlood Sluimrty242/8008 11:35 AM EDT Pcohn706712/15/2024 11:35 AM EDTTemperature--Respiratory Gwky406312/15/2024 11:35 AM EDTOxygen Sncpvjsazo55%12/15/2024 11:35 AM EDTInhaled Oxygen Concentration-- Hngvpz67.5 kg (215 lb)12/15/2024 11:35 AM UHKFrvrsm889.6 cm (5' 4 )12/15/2024 11:35 AM EDTBody Mass Index36.908 11:35 AM EDT Plan of Treatment DateTypeDepartmentCare Team (Latest Contact Info)Emmgypuybhg97/18/2025 3:30 PM ESTOffice Visit NOMS [place] [facility] [address] [facility] [address] [place] [address] Evangelist Murphy MD [address] [facility] [address] [place] [address] Health MaintenanceDue DateLast DoneCommentsInfluenza Vaccine (#1)12/27/2024 01/04/2023, 01/26/2022, 01/18/2022, Additional history pilmveGdpotrstx92/29/2026 01/24/2025, 07/14/2024, 07/05/2024 Procedures Procedure NamePriorityDate/TimeAssociated DiagnosisCommentsBI US BREAST LIMITED MCUSZEpgzimp09/29/2025 3:18 PM EDT Abnormal ultrasound of breast BI MAMMOGRAM DIAGNOSTIC TOMOSYNTHESIS VOUJGUrwxzex85/29/2025 3:07 PM EDT Abnormal mammogram of right breast MR LUMBAR SPINE WO CON01/14/2025 5:15 PM EDT from Last 3 Months Results * Right breast US limited (01/24/2025 3:18 PM EDT)Anatomical RegionLaterality ModalityBreastRightUltrasoundSpecimen (Source)Anatomical Location / Laterality Collection Method / VolumeCollection TimeReceived Time01/24/2025 3:33 PM EDT Impressions 01/24/2025 3:40 PM EDT Impression: Right breast ultrasound study demonstrates a likely small cyst at the 6 o'clock position which appears essentially unchanged compared to the prior exam as described. Finding correlates with the small asymmetric density on the mammogram studies. No obvious neoplasm. When correlating all studies no convincing evidence of neoplasm. BI-RADS 2 ELECTRONICALLY SIGNED BY: Vadim Mcwilliams M.D. Narrative 01/24/2025 3:40 PM EDT Examination: BI US BREAST LIMITED RIGHT Reason for Study: 6 month follow up Comparison: Ultrasound study of the right breast dated 07/14/2024, diagnostic mammogram study of theright breast dated 07/14/2024 and diagnostic mammogram study of the right breast dated 01/24/2025. Technique: Ultrasound study of the right breast was performed. Images were obtained at the 6 o'clock position area of interest. Findings: At the 6 o'clock position approximately 4 cm from the nipple there is an area of decreased echogenicity measuring approximately 0.4 x 0.4 x 0.3 cm. No obvious internal vascularity or posterior shadowing. Finding is compatible with a small cyst which appears essentially unchanged compared to the prior exam when allowing for differences in technique. The finding correlates with the small a symmetric density on the mammogram studies. No obvious solid vascular mass to suggest neoplasm. No obvious abnormal calcifications or vascularity. No obvious ductal dilatation. Authorizing ProviderResult TypeResult StatusEvangelist Murphy MDIMSavanna US PROCEDURES Final Result * Right diagnostic mammogram with tomosynthesis (01/24/2025 3:07 PM EDT) Anatomical RegionLateralityModalityBreastRightMammographySpecimen (Source) Anatomical Location / LateralityCollection Method / VolumeCollection Time Received Time01/24/2025 3:26 PM EDT Impressions 01/24/2025 3:40 PM EDT Small asymmetric density in the right breast similar to the prior mammogram study. The finding likely represents a small cyst when correlated with ultrasound. BIRADS 2 - Benign Findings DENSITY: There are scattered areas of fibroglandular density. FOLLOW-UP: Routine Screening Mammogram Board Certified Radiologists. ??Accredited by the ACR and FDA. MAMMOGRAPHY IS VERY IMPORTANT TO YOUR HEALTH. ??THE [employer] GUIDELINES RECOMMEND THAT WOMEN 40 YEARS OF AGE AND OLDER SHOULD HAVE A MAMMOGRAM EVERY YEAR. A REMINDER LETTER WILL BE SENT AT THE APPROPRIATE TIME. ?? ELECTRONICALLY SIGNED BY: Vadim Mcwilliams M.D. Narrative 01/24/2025 3:40 PM EDT EXAMINATION: BI MAMMOGRAM DIAGNOSTIC TOMOSYNTHESIS RIGHT CLINICAL HISTORY: ??6 month follow up TECHNIQUE: Diagnostic digital mammogram study of the right breast was performed with 2D and 3D tomosynthesis imaging. Study was compared to the screening mammogram study of the breasts dated 07/05/2024, diagnostic mammogram study of the right breast dated 07/14/2024, ultrasound study of the right breast dated 07/14/2024 and ultrasound study of the right breast dated 01/24/2025. FINDINGS: Standard views as well as coned-down compression views and true lateral view of the rightbreast were obtained. Previously noted approximately 5 x 4 mm asymmetric density in the inferomedial aspect of the right breast near the midline is again identified. No significant change since priormammogram study, when correlated with ultrasound the finding likely represents a small cyst. No obvious neoplasm. When correlating all studies no convincing evidence of neoplasm. Small axillary lymph node is seen which appears grossly unremarkable. Authorizing ProviderResult TypeResult StatusEvangelist Murphy MDIMG BI PROCEDURES Final Result * MR LUMBAR SPINE WO CON (01/14/2025 5:15 PM EDT)Anatomical RegionLaterality ModalityOtherSpecimen (Source)Anatomical Location / LateralityCollection Method / VolumeCollection TimeReceived Time01/14/2025 5:15 PM EDT Narrative 01/14/2025 5:18 PM EDT [facility] ?[address] ? [place] [address] ? Magnetic Resonance Report ? Signed ? Patient: PENELOPE,WILVER L ?MR#: [id number] ?? : 1985 ?Acct:[id number] ?? Age/Sex: 39 / F ?ADM Date: 01/13/25 ?? Loc: MRI ? Attending Dr: JOAN BRODY ? Ordering Physician: JOAN BRODY ?? Date of Service: 01/13/25 ?? Procedure(s): MR lumbar spine wo con ?? Accession Number(s): [id number] ? cc: EVANGELIST MURPHY ; JOAN BRODY ? [facility] ? [address] ? [place] [address] ? Patient Name: ?? WILVER HERNANDEZ ? MRN: [facility]:[id number] ? date: 1985 ?Sex: F ?? Assigned Patient Location: MRI ?? Current Patient Location: ? Accession/Order Number: [id number] ?? Exam Date: 01/13/2025 ??15:10 ?Report Date: 01/14/2025 ??17:15 ? At the request of: ?? JOAN ??RONN ? Procedure: ??MR lumbar spine wo con ? MRI of the lumbar spine performed without contrast ? INDICATION: Lumbar radiculopathy, back pain, fibromyalgia, lupus ? COMPARISON: None ? FINDINGS: Lumbar vertebral heights, alignment, bone marrow signal and disc ?? spaces are preserved. ??Conus medullaris terminates normally at L1-L2. ? Khnu-qn-mbjltumo multilevel facet arthropathy greatest L4-S1. ??Otherwise no ?? significant disc disease, disc protrusion, central canal or neural from ?? narrowing identified. ??Paraspinal soft tissues are unremarkable. ? MR/MR lumbar spine wo con ?? IMPRESSION: Multilevel jtrc-gp-krfpyqjw posterior element degeneration ?? greatest lumbosacral junction. ??Otherwise no significant canal or neural ?? foraminal narrowing identified. ? Impression dictated by: Tani Mackenzie M.D. ??01/14/2025 5:15 PM ? Dictation Location: RADIO-PC-29 ? Electronically authenticated by: [id number] ??Y ?? Date: 01/14/2025 ??17:15 ? Dictated By: ?Tani Mackenzie M.D. ? Signed By: ?01/14/25 1718 ? DD/ ? TD/TT: ? Community Health Representative: Procedure Note Radiology, Radiologist, - 01/14/2025 [place] [address] Magnetic Resonance Report Signed Patient: WILVER HERNANDEZ LMR#: [id number] : 1985Acct:[id number] Age/Sex: 39 / FADM Date: 01/13/25 Loc: MRI Attending Dr: JOAN BRODY Ordering Physician: JOAN BRODY Date of Service: 01/13/25 Procedure(s): MR lumbar spine wo con Accession Number(s): [id number] cc: EVANGELIST MURPHY ; JOAN BRODY [place] [address] Patient Name: WILVER HERNANDEZ MRN: [id number] date: 1985 Sex: F Assigned Patient Location: MRI Current Patient Location: Accession/Order Number: [id number] Exam Date: 01/13/2025 15:10 Report Date: 01/14/2025 17:15 At the request of: JOAN BRODY Procedure: MR lumbar spine wo con MRI of the lumbar spine performed without contrast INDICATION: Lumbar radiculopathy, back pain, fibromyalgia, lupus COMPARISON: None FINDINGS: Lumbar vertebral heights, alignment, bone marrow signal and disc spaces are preserved. Conus medullaris terminates normally at L1-L2. Pdbs-yw-xgbldbgu multilevel facet arthropathy greatest L4-S1. Otherwiseno significant disc disease, disc protrusion, central canal or neural from narrowing identified. Paraspinal soft tissues are unremarkable. MR/MR lumbar spine wo con IMPRESSION: Multilevel whho-an-kwvwerkz posterior element degeneration greatest lumbosacral junction. Otherwise no significant canal or neural foraminal narrowing identified. Impression dictated by: Tani Mackenzie M.D. 01/14/2025 5:15 PM Dictation Location: [place] [address] Electronically authenticated by: [id number] Y Date: 7:15 Dictated By: Tani Mackenzie M.D. Signed By:01/14/251717 DD/ 1715 TD/TT: Community Health Representative: Authorizing ProviderResult TypeResult StatusJoan Brody NPCLINISYNC IMAGING Final Result from Last 3 Months Insurance Care Teams Team MemberRelationshipSpecialtyStart DateEnd Evangelist Murphy MD [address] [facility] [address] [place] [address] PCP - GeneralFanvly Medicine09/10/22 Evangelist Murphy MD [address] [facility] [address] [place] [address] PCP - [place] [facility]07/27/20 Evangelist Murphy MD [address] [facility] [address] [place] [address] Family Medicine09/10/22
[2025-02-21 11:23] VITALS: BP 145/92; PULSE 102; TEMP 36.7; O2SAT 98
[2025-02-21 12:05] VITALS: BP 162/78; PULSE 102; O2SAT 95
[2025-02-21 12:06] VITALS: BP 155/75; PULSE 103; O2SAT 96
[2025-02-21] MEDS: BUPIVACAINE HCL 0.25% PF 25 MG/10 ML VIAL 8 ML INJ (12:09)
[2025-02-21] MEDS: LIDOCAINE HCL 2% 400 MG/20 ML MDV INJ (12:09)
--- NOTE | 2025-02-21 12:09 | W.PM.PROCNOT ---
Date of procedure: 02/21/25 Pre-op diagnosis: Pain due to lumbar spondylosis without myelopathy Post-op diagnosis: same as pre-op Procedure: Procedure: Bilateral L4-5, L5-S1 medial branch block Medications: Bupivacaine 0.25% 6cc The patient was seen and examined in the preoperative holding area.? An informed consent was obtained and placed on the chart.? The patient was brought to the medical procedure unit and placed in the prone position.? A timeout was completed verifying correct patient, procedure site, positioning, plan, and special equipment.? Using aseptic technique, the needle was placed at left L4. Under direct fluoroscopic visualization a Quincke-tipped spinal needle was advanced to the junction of the superior articulating process with the transverse process at the designated medial branch segment.? Preceded by negative aspiration, the above-mentioned injectate was placed in 1 mL aliquots.? The procedure was repeated at left L5, S1.? The needle was removed and insertion site was covered. The same procedure, at the same levels, was completed on the right side. The patient was taken to the postprocedural recovery area and monitored for an appropriate length of time before found suitable for discharge in the company of a responsible adult. Anesthesia: Local Surgeon: Ajay Ortega Pathology: none sent Condition: stable Disposition: no change
== END 2025-02-21 12:14 | disposition home or self-care (01) ==
PROVIDERS: PCP Family Medicine; Visit Provider Anesthesiology
DX: M47.816 Spondylosis without myelopathy or radiculopathy, lumbar region (principal); M54.50 Low back pain, unspecified
CPT/HCPCS: 64493; 64494; J0665

== ENCOUNTER 2025-02-24 12:21 | Outpatient (OUT) | payer BC, SELFPAY ==
--- OUTSIDE RECORDS SUMMARY | 2025-02-24 12:24 | XMS_ITS | Encounter Summary ---
Author Organization [facility] Address [address] [facility] [place] [address] Care Team Providers Care Associate Medical Director Name Role Phone Evangelist Saucedo MD Primary Care Provider [phone] Evangelist Saucedo MD Unavailable Evangelist Saucedo MD Unavailable Reason for Referral * Medications - AuthorizedSpecialtyDiagnoses / ProceduresReferred By Contact Referred To Contact Diagnoses Systemic lupus erythematosus, unspecified SLE type, unspecified organ involvement status (HCC) Ghislaine Cain NP [address] [facility] [address] [place] [address] Phone: tel: fax: Referral IDStatusReasonStart DateExpiration DateVisits RequestedVisits [id number]/28/20254/ Reason for Visit * ReasonCommentsMed Refill Encounter Details DateTypeDepartmentCare Team (Latest Contact Info)Qlbfuzdxuek06/28/2025Refill [facility] [address] [facility] 110 [place] [address] Cristiane Huffman PA [address] [facility] 110 [place] [address] Systemic lupus erythematosus, unspecified SLE type, unspecified organ involvement status (HCC) Social History Tobacco UseTypesPacks/DayYears UsedDateSmoking Tobacco: Every DayCigarettes Smokeless Tobacco: Never Comments:6-10 cigarettes/day Alcohol UseStandard Drinks/WeekCommentsYes0 (1 standard drink = 0.6 oz pure alcohol)1-2 drinks 2-4 times/month, 1-2 cups per day(soda)PHQ-2AnswerDate RecordedPatient Health Questionnaire-2 [id number] Sex and Gender InformationValueDate RecordedSex Assigned at BirthNot on file Legal RyvGsrjav46/15/2023 7:11 PM EDTGender IdentityNot on fileSexual OrientationNot on filedocumented as of this encounter Plan of Treatment DateTypeDepartmentCare Team (Latest Contact Info)Ekeithhbqpc25/18/2025 3:30 PM ESTOffice Visit [facility] [place] [facility] [address] [place] [address] [place] [phone] Evangelist Saucedo MD [address] [facility] [address] [place] [address] documented as of this encounter Visit Diagnoses Diagnosis Systemic lupus erythematosus, unspecified SLE type, unspecified organ involvement status (HCC) documented in this encounter Care Teams Team MemberRelationshipSpecialtyStart DateEnd Date Evangelist Saucedo MD [address] [facility] [address] [place] [address] PCP - GeneralFamily Medicine09/10/22 Evangelist Saucedo MD [address] [facility] 110 [place] [address] PCP - [place] [facility]07/27/20 Evangelist Saucedo MD [address] [facility] [address] [place] [address] Family Medicine09/10/22documented as of this encounter
--- OUTSIDE RECORDS SUMMARY | 2025-02-24 12:24 | XMS_ITS | Encounter Summary ---
Author Organization [facility] Address [address] [facility] [place] [place] [address] Care Team Providers Care Mechanical Engineering Lecturer Name Role Phone Evangelist Saucedo MD Primary Care Provider [phone] Evangelist Saucedo MD Unavailable Evangelist Saucdeo MD Unavailable Encounter Details DateTypeDepartmentCare Team (Latest Contact Info)Vfibbwpaplm41/30/2025bstract [facility] [address] [facility] 110 [place] [phone] Evangelist Saucedo MD [address] [facility] 110 [place], [place] [id number] Social History Tobacco UseTypesPacks/DayYears UsedDateSmoking Tobacco: Every DayCigarettes Smokeless Tobacco: Never Comments:6-10 cigarettes/day Alcohol UseStandard Drinks/WeekCommentsYes0 (1 standard drink = 0.6 oz pure alcohol)1-2 drinks 2-4 times/month, 1-2 cups per day(soda)PHQ-2AnswerDate RecordedPatient Health Questionnaire-2 [id number] Sex and Gender InformationValueDate RecordedSex Assigned at BirthNot on file Legal JgbWxahlm46/15/2023 7:11 PM EDTGender IdentityNot on fileSexual OrientationNot on filedocumented as of this encounter Plan of Treatment DateTypeDepartmentCare Team (Latest Contact Info)Pzbdkicgagc62/18/2025 3:30 PM ESTOffice Visit [facility] [address] [facility] 110 [place] [address] Evangelist Saucedo MD [address] [place] [address] [place] [address] documented as of this encounter Visit Diagnoses Not on filedocumented in this encounter Care Teams Team MemberRelationshipSpecialtyStart DateEnd Date Evangelist Saucedo MD [address] [facility] 110 [place] [address] [facility] - [facility]22 Evangelist Saucedo MD [address] [facility] 110 [place] [address] [facility] Evangelist Saucedo MD [address] [facility] 110 [place] [address] Family Medicine09/10/22documented as of this encounter
--- OUTSIDE RECORDS SUMMARY | 2025-02-24 12:24 | XMS_ITS | Encounter Summary ---
Author Organization [facility] Address [address] [facility] [place] [address] Care Team Providers Care Christian Science Nurse Name Role Phone Evangelist Saucedo MD Primary Care Provider Evangelist Saucedo MD Unavailable Evangelist Saucedo MD Unavailable Reason for Visit * ReasonCommentsMed Refill Encounter Details DateTypeDepartmentCare Team (Latest Contact Info)Jezfdxxqcdm86/28/2025Refill [facility] [address] [place] [address] [place] [address] Ghislaine Cain, SKEIN SPOOLER [address] [facility] 110 [place] [address] Fibromyalgia Social History Tobacco UseTypesPacks/DayYears UsedDateSmoking Tobacco: Every DayCigarettes Smokeless Tobacco: Never Comments:6-10 cigarettes/day Alcohol UseStandard Drinks/WeekCommentsYes0 (1 standard drink = 0.6 oz pure alcohol)1-2 drinks 2-4 times/month, 1-2 cups per day(soda)PHQ-2AnswerDate RecordedPatient Health Questionnaire-2 [id number] Sex and Gender InformationValueDate RecordedSex Assigned at BirthNot on file Legal IzrGakobt01/15/2023 7:11 PM EDTGender IdentityNot on fileSexual OrientationNot on filedocumented as of this encounter Plan of Treatment DateTypeDepartmentCare Team (Latest Contact Info)Pnnmwxsikcw74/18/2025 3:30 PM ESTOffice Visit [facility] [place] [facility] [address] [facility] 110 [place] [address] Evangelist Saucedo MD [address] [facility] 110 [place] [address] documented as of this encounter Visit Diagnoses Diagnosis Fibromyalgia Unspecified myalgia and myositis documented in this encounter Care Teams Team MemberRelationshipSpecialtyStart DateEnd Date Evangelist Saucedo MD [address] [facility] 110 [place] [address] [facility] - [facility]/10/22 Evangelist Saucedo MD [address] [facility] 110 [place] [address] PCP - [facility]07/27/20 Evangelist Saucedo MD [address] [facility] [address] [place] [address] Family Medicine09/10/22documented as of this encounter
--- OUTSIDE RECORDS SUMMARY | 2025-02-24 12:24 | XMS_ITS | Encounter Summary ---
Author Organization [facility] Address [address] [facility] [place] [address] Care Team Providers Care Glove Former Name Role Phone Evangelist Saucedo MD Primary Care Provider [phone] Evangelist Saucedo MD Unavailable Evangelist Saucedo MD Unavailable Reason for Visit * ReasonCommentsMed Refill Encounter Details DateTypeDepartmentCare Team (Latest Contact Info)Sxerjtvlqre12/15/2025Refill [facility] [address] [facility] 110 [place] [address] Cristiane Huffman, [place] [address] [facility] 110 [place] [address] Systemic lupus erythematosus, unspecified SLE type, unspecified organ involvement status (HCC); Fibromyalgia Social History Tobacco UseTypesPacks/DayYears UsedDateSmoking Tobacco: Every DayCigarettes Smokeless Tobacco: Never Comments:6-10 cigarettes/day Alcohol UseStandard Drinks/WeekCommentsYes0 (1 standard drink = 0.6 oz pure alcohol)1-2 drinks 2-4 times/month, 1-2 cups per day(soda)PHQ-2AnswerDate RecordedPatient Health Questionnaire-2 [id number] Sex and Gender InformationValueDate RecordedSex Assigned at BirthNot on file Legal FzqZzgdda95/15/2023 7:11 PM EDTGender IdentityNot on fileSexual OrientationNot on filedocumented as of this encounter Plan of Treatment DateTypeDepartmentCare Team (Latest Contact Info)Frybtmuplno32/18/2025 3:30 PM ESTOffice Visit [facility] [place] [facility] [address] [facility] 110 [place] [phone] Evangelist Saucedo MD [address] [facility] 110 [place] [address] documented as of this encounter Visit Diagnoses Diagnosis Systemic lupus erythematosus, unspecified SLE type, unspecified organ involvement status (HCC) Fibromyalgia Unspecified myalgia and myositis documented in this encounter Care Teams Team MemberRelationshipSpecialtyStart DateEnd Date Evangelist Saucedo MD [address] [facility] 110 [place] [address] [facility] - [facility] Evangelist Saucedo MD [address] [facility] 110 [place] [address] [facility] Evangelist Saucedo MD [address] [facility] 110 [place] [address] Family Medicine09/10/22documented as of this encounter
--- OUTSIDE RECORDS SUMMARY | 2025-02-24 12:24 | XMS_ITS | Clinical Summary ---
Author Organization [facility] Healthcare Address [address] [place] [address] Care Team Providers Care Cathode Builder Name Role Phone Evangelist Murphy MD Primary Care Provider [phone] Evangelist Murphy MD Unavailable Evangelist Murphy MD Unavailable Allergies Active AllergyReactionsCriticalityNoted DateCommentsBupropionRash,UnknownLow 04/02/2021HydrocodoneGI intolerance,Ddswvig4804/02/2021ulfa AntibioticsUnknown 09/18/2022 Medications MedicationSigDispense QuantityRefillsLast FilledStart DateEnd DateStatus cholecalciferol (Vitamin D3) 25 MCG (1000 UT) tablet 1 (one) time each day at the same time.Active estradiol (Estrace) 1 MG tablet 1 (one) time each day at the same time.03/28/2022ctive estrogens, conjugated, (Premarin) 0.625 MG tablet Take 0.625 mg by mouth 1 (one) time each day at the same time. 1/2 tab daily as thqljw1103/28/2022ctive fluticasone (Flonase) 50 MCG/ACT nasal spray 1 [...] FOR UP TO 14 DAYS 84 tablet /5Active carisoprodol (Soma) 350 MG tablet Indications:FibromyalgiaTAKE 1 TABLET BY MOUTH 4 TIMES A DAY NEEDED FOR MUSCLE SPASMS FOR UP TO 14 DAYS 56 tablet 5Active atorvastatin (Lipitor) 20 MG tablet Indications:Mixed hyperlipidemiaTake 1 tablet (20 mg) by mouth Daily 100 tablet //12/2024Discontinued clonazePAM (KlonoPIN) 1 MG tablet Indications:Adjustment disorder [...] day as needed for anxiety 60 tablet /11/2024Discontinued(Reorder) traMADol (Ultram) 50 MG tablet Indications:Systemic lupus erythematosus, unspecified SLE type, unspecified organ involvement status (HCC)TAKE 1 TABLET (50 MG) BY MOUTH EVERY 4 (FOUR) HOURS IF NEEDED FOR SEVERE PAIN FOR UP TO 14 DAYS 84 tablet /Discontinued carisoprodol (Soma) 350 MG tablet Indications:FibromyalgiaTAKE 1 TABLET BY MOUTH 4 TIMES A DAY NEEDED FOR MUSCLE SPASMS FOR UP TO 14 DAYS 56 tablet /Discontinued Active Problems ProblemNoted DateDiagnosed DateMigraine crbpnynf47/15/2024 Assessment & Plan (02/16/2024 9:39 AM EDT): Do the Nurtec every other day towards end of month Qbsvjrf5811/26/2022 Assessment & Plan (06/21/2024 9:30 AM EST): [...] January Recurrent major depressive disorder, in partial ulzcpbvqk70/01/2023 Assessment & Plan (02/16/2024 9:35 AM EDT): This is a chronic medical condition that is stable since last assessment. No changes in treatment are suggested at this time. Continue Current meds. Assessment & Plan (11/26/2022 11:57 AM EDT): Sunlight and exercise Personal history of colonic kluzwh4210/17/2022lood in stool10/17/2022djustment disorder with jvtrgme2209/18/2022ysfunction of left eustachian tube09/18/2022Ear tgsbqyvuov25/24/2023Elevated antinuclear antibody (YANICK) level09/18/2022 Assessment & Plan (01/27/2023 10:08 AM EDT): F/U with Rhematology Jxltgcrmtmft66/24/2023Hot hdgdlfs6609/18/2022 Assessment & Plan (11/26/2022 11:57 AM EDT): Black Cohash no relief Hot flashes due to gjplkmyky87/24/2023Menopausal and postmenopausal disorder 09/18/2022Other xkjhacde12/24/5061Ozjoke36/24/2023Status post hysterectomy 09/18/2022Systemic lupus uhqrmyshjyymz84/24/2023Tension dsuxcsxf87/24/2023 Encounters DateTypeDepartmentCare QhklSxurvgcttmo14/30/2025bstract [facility] [address] [facility] [address] [place] [address] Evangelist Murphy MD 02/22/2025Refill [facility] [facility] [address] [place] [address] [place] [address] Joan Brody, OB NURSE Qmgzgwfkphsj57/28/2025Refill [facility] [facility] [address] [place] [address] [place] [address] Cristiane Huffman PA Systemic lupus erythematosus, unspecified SLE type, unspecified organ involvement status (HCC)02/09/2025Refill [facility] [facility] [address] [place] [address] [place] [address] Cristiane Huffman PA Systemic lupus erythematosus, unspecified SLE type, unspecified organ involvement status (HCC); Zfsbxclrxswi76/09/2025Refill [facility] [address] [place] [address] [place] [address] Evangelist Murphy MD Mixed vdwkarzrdvvekf54/08/2025[facility] [address] [facility] [address] [place] [address] Cristiane Huffman PA Adjustment disorder with vzvzhed6601/28/2025Refill [facility] [address] [facility] [address] [place] [address] Cristiane Huffman PA Fibromyalgia; Systemic lupus erythematosus, unspecified SLE type, unspecified organ involvement status (HCC); Adjustment disorder with dnsrpvh7401/27/2025Refill [facility] [address] [facility] [address] [place] [address] Cristiane Huffman PA Adjustment disorder with anxiety; Fibromyalgia; Systemic lupus erythematosus, unspecified SLE type, unspecified organ involvement status (HCC)01/27/2025Refill [facility] [address] [facility] [address] [place] [address] Cristiane Huffman PA Fibromyalgia; Systemic lupus erythematosus, unspecified SLE type, unspecified organ involvement status (HCC)01/25/2025Refill [facility] [address] [facility] [address] [place] [address] Evangelist Murphy MD Intractable chronic migraine with aura with status migrainosus ; Ceyjef5101/24/2025 2:45 PM EDTAncillary Procedure [facility] [address] [place] [address] [place] [id number] Abnormal ultrasound of sgnglz7401/24/2025 2:30 PM EDTAncillary Procedure [facility] [address] [place] [address] [place] [address] Abnormal mammogram of right yksysz0401/24/20254206Hdgzhc70/25/2025Results [facility] [address] [facility] [address] [place] [address] Myla Killian LPN MR LUMBAR SPINE WO CON01/17/2025bstract [facility] [address] [place] [address] [place] [address] Evangelist Murphy MD 5Clinisync Result Encounter [facility] External Department Unsolicited Joan Brody, OB NURSE 01/14/2025Refill [facility] [place] [facility] [address] [place] [address] [place] [address] Cristiane Huffman, PA Systemic lupus erythematosus, unspecified SLE type, unspecified organ involvement status (HCC)01/14/2025Refill [facility] [address] [place] [address] [place] [address] Cristiane Huffman, PA Fibromyalgia; Systemic lupus erythematosus, unspecified SLE type, unspecified organ involvement status (HCC)01/05/2025Refill [facility] [place] [facility] [address] [place] [address] [place] [address] Cristiane Huffman, PA Adjustment disorder with olgryfp0701/03/2025Refill [facility] [place] [facility] [address] [place] [address] [place] [address] Cristiane Huffman, PA Hxowlxbfosek36/05/2025Orders Only [facility] [place] [facility] [address] [place] [address] [place] [address] Evangelist Murphy MD Abnormal mammogram of right breast; Abnormal ultrasound of dskzxj0012/28/2024Refill [facility] [address] [place] [address] [place] [address] Cristiane Huffman, PA Systemic lupus erythematosus, unspecified SLE type, unspecified organ involvement status (HCC)12/21/2024Refill [facility] [place] [facility] [address] [place] [address] [place] [address] Joan Brody NP Ujvyyuduuryw42/26/2025bstract [facility] [place] [facility] [address] [place] [address] [place] [address] Evangelist Murphy MD 12/20/2024[facility] [address] [facility] [address] [place] [address] Cristiane Huffman PA Udrjrekwfyyw29/20/2025 11:30 AM EDTOffice Visit [facility] [place] [facility] [address] [place] [address] [place] [address] Joan Brody NP Fibromyalgia (Primary Dx); Systemic lupus erythematosus, unspecified SLE type, unspecified organ involvement status (HCC); Chronic pain syndrome; Lumbar radiculopathy; Gastro-esophageal reflux disease without eadhyqfoanz40/20/2025[facility] [address] [facility] [address] [place] [address] Joan Brody NP Systemic lupus erythematosus, unspecified SLE type, unspecified organ involvement status (HCC)12/15/2024amboo flowsheet [facility] [place] [facility] [address] [facility] [address] [place] [address] Joan Brody NP 12/15/20244411Nahyct68/14/2025[facility] [address] [facility] [address] [place] [address] Evangelist Murphy MD Adjustment disorder with pjvyboj4612/06/2024bstract [facility] [place] [facility] [address] [facility] [address] [place] [address] Evangelist Murphy MD 12/03/2024[facility] [address] [place] [address] [place] [address] Cristiane Huffman PA Systemic lupus erythematosus, unspecified SLE type, unspecified organ involvement status (HCC)12/02/2024[facility]ill [facility] [place] [facility] [address] [facility] [address] [place] [address] Cristiane Huffman PA Fgeuiefprcvz60/07/2025Refill [facility] [place] [facility] [address] [facility] [address] [place] [address] Evangelist Murphy MD Systemic lupus erythematosus, unspecified SLE type, unspecified organ involvement status (HCC)from Last 3 Months Immunizations ImmunizationAdministration DatesNext DueInfluenza, injectable, MDCK, preservative free, audhrmobvlnz77/09/2023,01/18/2022,03/06/2020Influenza, injectable, quadrivalent, preservative free01/26/2022,02/13/2021Moderna Bivalent Booster Jkrafxlvvyv95/20/2023 Family History Medical HistoryRelationNameCommentsHypertensionFatherRelationNameStatusComments FatherDeceasedMotherAlive Social History Tobacco UseTypesPacks/DayYears UsedDateSmoking Tobacco: Every DayCigarettes Smokeless Tobacco: Never Tobacco Cessation:Ready to Q uit: Not Asked; Counseling Given: Yes Comments:6-10 cigarettes/day Alcohol UseStandard Drinks/WeekCommentsYes0 (1 standard drink = 0.6 oz pure alcohol)1-2 drinks 2-4 times/month, 1-2 cups per day(soda)PHQ-2AnswerDate RecordedPatient Health Questionnaire-2 Xxrun360CommentsUnknown Sex and Gender InformationValueDate RecordedSex Assigned at BirthNot on file Legal WsdLmyqsf94/15/2023 7:11 PM EDTGender IdentityNot on fileSexual OrientationNot on file Last Filed Vital Signs Vital SignReadingTime TakenCommentsBlood Lekjvmlb853/8008 11:35 AM EDT Matkc1248 11:35 AM EDTTemperature--Respiratory Vdbg1620 11:35 AM EDTOxygen Kwgxfywjpj94%12/15/2024 11:35 AM EDTInhaled Oxygen Concentration-- Jhqtup55.5 kg (215 lb)12/15/2024 11:35 AM ROCLmviid624.6 cm (5' 4 )12/15/2024 11:35 AM EDTBody Mass Index36.908 11:35 AM EDT Plan of Treatment DateTypeDepartmentCare Team (Latest Contact Info)Vuptkgusxnt01/18/2025 3:30 PM ESTOffice Visit N[facility] [place] [facility] [address] [facility] [address] [place] [address] Evangelist Murphy MD [address] [address] Health MaintenanceDue DateLast DoneCommentsMMR Vaccines (1 of 1 - Standard series)1985DTaP/Tdap/Td Vaccines (1 - Tdap)1991Varicella Vaccines (1 of 2 - 13+ 2-dose series)1997Hepatitis B Vaccines (1 of 3 - 19+ 3-dose series)2003Pneumococcal Vaccine: Pediatrics (0 to 5 Years) and At-Risk Patients (6 to 64 Years) (1 of 2 - PCV)2003HPV Vaccines (1 - 3-dose SCDM series)2011COVID-19 Vaccine ( season)501/, 05/26/2021, 05/02/2021Influenza Vaccine (#1)509/12/2022, 01/26/2022, 01/18/2022, Additional history cdmzfcPqnztgjin59/29/202609/, 07/14/2024, 07/05/2024HIB VaccinesAged OutNo longer eligible based on patient's age to complete this topicHepatitis A VaccinesAged OutNo longer eligible based on patient's age to complete this topicIPV VaccinesAged OutNo longer eligible based on patient's age to complete this topicMeningococcal B VaccineAged OutNo longer eligible based on patient's age to complete this topicMeningococcal VaccineAged OutNo longer eligible based on patient's age to complete this topicRotavirus VaccinesAged OutNo longer eligible based on patient's age to complete this topic Procedures Procedure NamePriorityDate/TimeAssociated DiagnosisCommentsBI US BREAST LIMITED CFPNMFznlcpd78/29/2025 3:18 PM EDT Abnormal ultrasound of breast BI MAMMOGRAM DIAGNOSTIC TOMOSYNTHESIS LDIGZFwpcrcg49/29/2025 3:07 PM EDT Abnormal mammogram of right [...] obvious ductal dilatation. Authorizing ProviderResult TypeResult StatusEvangelist [facility] US PROCEDURES Final Result * Right diagnostic [...] IS VERY IMPORTANT TO YOUR HEALTH. ??THE [employer] GUIDELINES RECOMMEND THAT WOMEN 40 [...] EDT Narrative 01/14/2025 5:18 PM EDT [facility] ?[address] ? [place] [address] ? Magnetic Resonance Report ? Signed ? Patient: PENELOPE,WILVER L ?MR#: [id number] ?? : 1985 ?Acct:[id number] ?? Age/Sex: 39 / F ?ADM Date: 09/18/25 ?? Loc: MRI ? Attending Dr: JOAN BRODY ? Ordering Physician: JOAN BRODY ?? Date of Service: 01/13/25 ?? Procedure(s): MR lumbar spine wo con ?? Accession Number(s): [id number] ? cc: EVANGELIST MURPHY ; JOAN BRODY ? [facility] ? [address] ? [place] [address] ? Patient Name: ?? WILVER HERNANDEZ ? MRN: [facility]:[id number] ? date: 1985 ?Sex: F ?? Assigned Patient Location: MRI ?? Current Patient Location: ? Accession/Order Number: [id number] ?? Exam Date: 01/13/2025 ??15:10 ?Report Date: [...] ??Conus medullaris terminates normally at L1-L2. ? Tzmk-nu-badcylzw multilevel facet arthropathy greatest L4-S1. ??Otherwise no ?? significant disc disease, disc protrusion, central canal or neural from ?? narrowing identified. ??Paraspinal soft tissues are unremarkable. ? MR/MR lumbar spine wo con ?? IMPRESSION: Multilevel eufc-fw-fxzarusj posterior element degeneration ?? greatest lumbosacral junction. ??Otherwise no significant canal or neural ?? foraminal narrowing identified. ? Impression dictated by: Tani Mackenzie M.D. ??01/14/2025 5:15 PM ? Dictation Location: RADIO-PC-29 ? Electronically authenticated by: [id number] ??Y ?? Date: 01/14/2025 ??17:15 ? Dictated By: ?Tani Mackenzie M.D. ? Signed By: ?01/14/25 1718 ? DD/ 1715 ? TD/TT: ? Derrick Engineer: Procedure Note Radiology, Radiologist, MD - 01/14/2025 [facility] [place] [id number] Magnetic Resonance Report Signed Patient: WILVER HERNANDEZ LMR#: [id number] : 1985Acct:[id number] Age/Sex: 39 / FADM Date: 01/13/25 Loc: MRI Attending Dr: JOAN BRODY Ordering Physician: JOAN BRODY Date of Service: 01/13/25 Procedure(s): MR lumbar spine wo con Accession Number(s): [id number] cc: EVANGELIST MURPHY ; JOAN BRODY [place] [address] Patient Name: WILVER HERNANDEZ MRN: [id number] date: 1985 Sex: F Assigned Patient Location: MRI Current Patient Location: Accession/Order Number: [id number] Exam Date: 01/13/2025 15:10 Report Date: 01/14/2025 17:15 At the request of: JOAN BRODY Procedure: MR lumbar spine wo con MRI of the lumbar spine performed without contrast INDICATION: Lumbar radiculopathy, back pain, fibromyalgia, lupus COMPARISON: None FINDINGS: Lumbar vertebral heights, alignment, bone marrow signal and disc spaces are preserved. Conus medullaris terminates normally at L1-L2. Xspd-si-xohuddms multilevel facet arthropathy greatest L4-S1. Otherwiseno significant disc disease, disc protrusion, central canal or neural from narrowing identified. Paraspinal soft tissues are unremarkable. MR/MR lumbar spine wo con IMPRESSION: Multilevel rpjy-bl-nqprdrvn posterior element degeneration greatest lumbosacral junction. Otherwise no significant canal or neural foraminal narrowing identified. Impression dictated by: Tani Mackenzie M.D. 01/14/2025 5:15 PM Dictation Location: [place] [address] Electronically authenticated by: [id number] Y Date: 7:15 Dictated By: Tani Mackenzie M.D. Signed By:01/14/258 DD/ 14 TD/TT: Derrick Engineer: Authorizing ProviderResult TypeResult StatusShjo ann Brody NPCLINISYNC IMAGING Final Result from Last 3 Months Insurance Care Teams Team MemberRelationshipSpecialtyStart DateEnd Date Evangelist Murphy MD [address] [facility] [address] [place] [address] [facility] - [facility] Evangelist Murphy MD [address] [place] [address] [place] [address] PCP - [facility]07/27/20 Evangelist Murphy MD [address] [place] [address] [place] [address] Family Medicine09/10/22
--- NOTE | 2025-02-24 12:54 | PM.CN ---
Consult Note: HPI Data of Consult Patient: known to practice within the last 3 years Requesting Physician: Juanita Cooley NP Primary Care Provider: MATTHEW MURPHY Consult Narrative Reason for consult: low back pain Narrative: Ramy Hernandez a pleasant 39 year old female presents for evaluation and management of chronic low back pain unresponsive to > 6 weeks of HEP, heat, ice, tylenol, NSAIDs. currently utilizing soma, gabapentin, tramadol, klonopin, prednisone, effexor without improvement. pain today 7/10 all over increasing to 10/10 at times. denies fall/injury. Recently completed lumbar MRI which is consistent with facet changes. on 02/21/25 underwent bilateral L4-5 L5-S1 facet medial branch block #2 preop pain up to 10/10 post op pain 0/10 for at least 2 hours, noted >80% improvement in pain and functional ability. cc:: CC: Juanita Cooley NP [facility] Medical History (Updated 01/28/25 @ 08:56 by Marilu Boston) Obesity ?E66.9 - Obesity, unspecified (ICD-10) Upper back pain ?M54.9 - Dorsalgia, unspecified (ICD-10) Neck pain ?M54.2 - Cervicalgia (ICD-10) Low back pain ?M54.50 - Low back pain, unspecified (ICD-10) Systemic lupus ?M32.9 - Systemic lupus erythematosus, unspecified (ICD-10) Fibromyalgia ?M79.7 - Fibromyalgia (ICD-10) Depression ?F32.A - Depression, unspecified (ICD-10) Anxiety ?F41.9 - Anxiety disorder, unspecified (ICD-10) Acid reflux ?K21.9 - Gastro-esophageal reflux disease without esophagitis (ICD-10) Kidney stone ?N20.0 - Calculus of kidney (ICD-10) Smoker ?F17.200 - Nicotine dependence, unspecified, uncomplicated (ICD-10) High cholesterol ?E78.00 - Pure hypercholesterolemia, unspecified (ICD-10) Hypertension ?I10 - Essential (primary) hypertension (ICD-10) Surgical History (Updated 01/28/25 @ 08:56 by Marilu Boston) History of endometrial ablation ?Z98.890 - Other specified postprocedural states (ICD-10) H/O laparoscopy ?Z98.890 - Other specified postprocedural states (ICD-10) Hx of cystoscopy ?Z98.890 - Other specified postprocedural states (ICD-10) H/O: hysterectomy ?Z90.710 - Acquired absence of both cervix and uterus (ICD-10) H/O rectal polypectomy ?Z98.890 - Other specified postprocedural states (ICD-10) ?Z87.19 - Personal history of other diseases of the digestive system (ICD-10) Hx of cholecystectomy ?Z90.49 - Acquired absence of other specified parts of digestive tract (ICD-10) Meds Home Medications and Allergies Home Medications ?Medication ?Instructions ?Recorded ?Confirmed ?Type NURTEC 01/19/25 History atorvastatin 20 mg tablet (Lipitor) 20 mg PO DAILY 01/19/25 02/21/25 History carisoprodol 350 mg tablet (Soma) 350 mg PO QID 01/19/25 02/21/25 History clonazepam 1 mg tablet (Klonopin) 1 mg PO BID 01/19/25 02/21/25 History fremanezumab-vfrm 225 mg/1.5 mL mg subcut .EVERY MONTH 01/19/25 History subcutaneous auto-injector (Ajovy) gabapentin 400 mg capsule 400 mg PO TID 01/19/25 02/21/25 History metoprolol succinate 50 mg 50 mg PO DAILY 01/19/25 02/21/25 History tablet,extended release 24 hr (Toprol XL) prednisone 10 mg tablet 10 mg PO DAILY 01/19/25 02/21/25 History tramadol 50 mg tablet 50 mg PO Q4H 01/19/25 02/21/25 History venlafaxine 150 mg 150 mg PO DAILY 01/19/25 02/21/25 History capsule,extended release 24 hr (Effexor XR) Allergies Allergy/AdvReac Type Severity Reaction Status Date / Time bupropion Allergy Unknown Unknown Verified 02/21/25 11:20 Sulfa (Sulfonamide Allergy Unknown Unknown Verified 02/21/25 11:20 Antibiotics) Exam Constitutional Documenting provider has reviewed patient's vital signs: yes Common normals: no apparent distress, oriented x3 and alert General appearance: cooperative and disheveled HENAL Common normals: normocephalic, hearing grossly normal bilaterally and moist oral mucous membranes Head and scalp: normocephalic Eye Common normals: PERRL Pupil: PERRL Neck & C-Spine Common normals: full ROM General: normal visual inspection Chest Common normals: inspection of chest normal Respiratory Common normals: normal respiratory effort, no retractions and no use of accessory muscles Back & Pelvis Lumbar spine/lower back: ROM limited, pain with ROM, lumbar spinal tenderness and straight leg raise negative bilaterally Other: diffuse hyperalgesia moderate pain to touch positive facet loading bilaterally Neuro Common normals: oriented x3 Sensorium/orientation: alert Psych Common normals: mental status grossly normal, thought process normal, cooperative, affect normal, speech normal and activity/motor behavior normal Speech: normal speech Thought process: normal thought process Results Additional Findings Additional findings: If on a controlled substance or opioids, I have checked an [place] report on this patient and there are no aberrancies noted in the prescribing history.??If on a controlled substance or opioid a drug screen was completed and reviewed within the last year, and if there has not been a drug screen completed we ordered one today to monitor higher risk, state monitored pain medication use. As part of providing excellent, safe, comprehensive care, the following was completed at our patient's visit: 1. A medication reconciliation and review to ensure accurate knowledge of current/active medications, including asking our patients to inform us about any oyjn-clf-njbgnwj medications or herbal remedies/nutritional supplements/alternative remedies. 2. A review to specifically ensure our patients have had annual screening for screening for depression, screening for tobacco use, and screening for unhealthy alcohol use. For concerning screenings had a discussion with the patient, provided patient education, and recommended follow-up with primary care provider when appropriate. If patient noted with a risk of falling, they received education on strength, gait, and balance training to prevent future risk of falling. Portions of this note may have been carried over from the previous visit and updated as appropriate. Please note this office utilizes paper charting in addition to the electronic medical record. A list of current medications, vitals, and PMH is available there as the clinical staff outside of myself do not have access to [employer] charting during the clinic day operations. As part of providing quality comprehensive care the current medications, vitals, and PMH were reviewed in the paper chart. Assessment and Plan Assessment and Plan (1) Lumbar spondylosis: (2) Fibromyalgia: Plan The patient has had over 3 months of moderate to severe low back pain with functional impairment and inadequate response to conservative care including NSAIDS (unless there are contraindication such as concurrent blood thinners), multiple oral or topical pain medications, and home exercise program/physical therapy.? Patient has completed >6 weeks of guided home exercise program and/or formal physical therapy program without relief of their symptoms.? The Oswestry Disability Index was completed, and the patient scored a 58%.? bilateral L4-5 L5-S1 RFA under fluoroscopy for facet mediated pain with 10mg po valium 30-60mins prior to RFA continue TENS, noted significant improvement continue medication management through PCP, continue NNCP with our office. could consider LDN, PEA, duloxetine for FM, chronic pain syndrome f/u 1 month after RFA
== END 2025-02-24 12:22 | disposition home or self-care (01) ==
LOC: PM 12:22
PROVIDERS: PCP Family Medicine; Visit Provider Nurse Practitioner
DX: M47.816 Spondylosis without myelopathy or radiculopathy, lumbar region (principal); M79.7 Fibromyalgia
CPT/HCPCS: G0463

== ENCOUNTER 2025-03-07 08:06 | Day surgery (SDC) | payer BC, SELFPAY ==
--- OUTSIDE RECORDS SUMMARY | 2025-03-01 14:30 | XMS_ITS | Encounter Summary ---
Author Organization [facility] Address [address] [facility] [place] [address] Care Team Providers Care Home Care Administrator Name Role Phone Evangelist Saucedo MD Primary Care Provider [phone] Evangelist Suacedo MD Unavailable Ghislaine Cain KEYMODULE ASSEMBLY MACHINE TENDER Unavailable [phone] Reason for Referral * Medications - ClosedSpecialtyDiagnoses / ProceduresReferred By ContactReferred To Contact Diagnoses Fibromyalgia Chronic low back pain, unspecified back pain laterality, unspecified whether sciatica present Evangelist Saucedo MD 112 [facility] 110 [place] [address] Phone: tel: fax: Referral IDStatusReasonStart DateExpiration DateVisits RequestedVisits [id number] Reason for Visit * ReasonCommentsDepressionAnxiety Encounter Details DateTypeDepartmentCare Team (Latest Contact Info)Eapewgcuafp03/04/2025 2:30 PM ESTOffice Visit [facility] 112 [facility] [address] [place] [phone] Evangelist Saucedo MD 112 [facility] 110 [place] [address] Fibromyalgia (Primary Dx); Chronic low back pain, unspecified back pain laterality, unspecified whether sciatica present; Anxiety Social History Tobacco UseTypesPacks/DayYears UsedDateSmoking Tobacco: Every DayCigarettes Smokeless Tobacco: Never Comments:6-10 cigarettes/day Alcohol UseStandard Drinks/WeekCommentsYes0 (1 standard drink = 0.6 oz pure alcohol)1-2 drinks 2-4 times/month, 1-2 cups per day(soda)PHQ-2AnswerDate RecordedPatient Health Questionnaire-2 Vqsrs89705/01/2024CommentsUnknown Sex and Gender InformationValueDate RecordedSex Assigned at BirthNot on file Legal SdqBwnszt51/15/2023 7:11 PM EDTGender IdentityNot on fileSexual OrientationNot on filedocumented as of this encounter Last Filed Vital Signs Vital SignReadingTime TakenCommentsBlood Jsoerwkq917/8203/01/2025 2:40 PM EST Qbyoy339703/01/2025 2:40 PM ESTTemperature--Respiratory Rate--Oxygen Lvbjktecqc53% 03/01/2025 2:40 PM ESTInhaled Oxygen Concentration--Tgljax22.3 kg (208 lb) 03/01/2025 2:40 PM ECDYqqztd260.6 cm (5' 4 )03/01/2025 2:40 PM ESTBody Mass Index35.7105/01/2024 2:40 PM ESTdocumented in this encounter Functional Status * Over the past 2 weeks, how often have you been bothered by any of the following problems?QuestionAnswerDate of AssessmentAuthorLittle interest or pleasure in doing thingsNot at all03/01/2025 7:31 AM Katya Guillen MA Feeling down, depressed, or hopelessNot at all03/01/2025 7:31 AM Katya Guillen MAPatient Health Questionnaire-2 Rrpwn34005/01/2024 7:31 AM Katya Guillen MA documented as of this encounter Progress Notes * Evangelist Saucedo MD - 03/01/2025 3:00 PM ESTAssociated Problem(s): Anxiety Patient's Medicine is effective at controlling symptoms at current dose and frequency. PDMP reviewed with no evidence of overuse and abuse D/W patient to avoid use of benzodiazepines when consuming alcohol Advised against operating heavy machinery and driving long distances while on medicines. * Evangelist Saucedo MD - 03/01/2025 2:57 PM ESTAssociated Problem(s): Fibromyalgia Will wean down on Gabapentin Consider retrying Pregabalin * Evangelist Saucedo MD - 03/01/2025 2:52 PM ESTAssociated Problem(s): Chronic low back pain Has a follow-up with Pain Management Ablation on March 07, 2025 Had results with facet improvement Medication choice and dosage is appropriate for patient's current medical conditions. Patient will continue to be required to be seen in our office at least every three months for monitoring. At eachfollow up visit I will reassess the patient's need for the medication. Patient is to have this medication prescribed only through this office. Failure to follow the rules and regulations will result in tapering and discontinuation of medications if applicable. Patient verbalized understanding. OARRS Report was reviewed for this patient. * Evangelist Saucedo MD - 03/01/2025 2:30 PM EST Images from the original note were not included. Subjective Patient ID: Ramy Hernandez is a 39 y.o. female who presents for Depression and Anxiety. Possible medication changes for pain meds she has a couple she would like to discuss, pt states onenexium is not helping so she is taking 2 in the mornings, wanting to do three times a day klonopin Pt had MRI of back has arthritis of lumbar went to pain management, had 2 mbbs done, Friday will beburning nerves , then move on to other issues Tailbone hurting ice heat not helping started a little over a week now Depression Visit Type: follow-up Patient is not experiencing: shortness of breath. Frequency of symptoms: occasionally Severity: moderate Sleep quality: fair Nighttime awakenings: none Anxiety Presents for follow-up visit. Patient reports no shortness of breath. Symptoms occur constantly. The severity of symptoms is moderate. Over the past 2 weeks, how often have you been bothered by any of the following problems? Little interest or pleasure in doing things: Not at all Feeling down, depressed, or hopeless: Not at all Patient Health Questionnaire-2 Score: 0 Current Outpatient Medications on File Prior to Visit Medication Sig Dispense Refill atorvastatin (Lipitor) 20 MG tablet TAKE 1 TABLET BY MOUTH EVERY DAY 90 tablet 4 carisoprodol (Soma) 350 MG tablet TAKE 1 TABLET BY MOUTH 4 TIMES A DAY NEEDED FOR MUSCLE SPASMS FOR UP TO 14 DAYS 56 tablet 0 cholecalciferol (Vitamin D3) 25 MCG (1000 UT) tablet 1 (one) time each day at the same time. clonazePAM (KlonoPIN) 1 MG tablet Take 1 tablet (1 mg) by mouth 2 (two) times a day as needed for anxiety 60 tablet 0 esomeprazole (NexIUM) [address] capsule Take 1 capsule (40 mg) by mouth in the morning. Take before meals. Do not open capsule. 90 capsule 3 fremanezumab (Ajovy) 225 MG/1.5ML auto-injector INJECT 1 PEN UNDER SKIN ONCE EVERY 30 DAYS 1 each 11 metoprolol succinate XL (Toprol-XL) 50 MG 24 hr tablet TAKE 1 TABLET BY MOUTH EVERY DAY 100 tablet 3 Nurtec 75 MG tablet dispersible DISSOLVE 1 TABLET ON THE TONGUE ONCE EVERY OTHER DAY NEEDED FOR MIGRAINES 8 tablet 5 ondansetron ODT (Zofran-ODT) 4 MG disintegrating tablet DISSOLVE 1 TABLET ON THE TONGUE 3 TIMES A DAY 18 tablet 4 predniSONE (Deltasone) 10 MG tablet TAKE 1 TABLET (10 MG) BY MOUTH DAILY. 30 tablet 0 traMADol (Ultram) 50 MG tablet TAKE 1 TABLET (50 MG) BY MOUTH EVERY 4 (FOUR) HOURS IF NEEDED FOR SEVERE PAIN FOR UP TO 14 DAYS 84 tablet 0 venlafaxine XR (Effexor XR) 150 MG 24 hr capsule Take 2 capsules (300 mg) by mouth Daily Do not crush or chew. 60 capsule 11 zinc 30 MG tablet 1 (one) time each day at the same time. [DISCONTINUED] estradiol (Estrace) 1 MG tablet 1 (one) time each day at the same time. [DISCONTINUED] estrogens, conjugated, (Premarin) 0.625 MG tablet Take 0.625 mg by mouth 1 (one) time each day at the same time. 1/2 tab daily as needed [DISCONTINUED] fluticasone (Flonase) 50 MCG/ACT nasal spray 1 (one) time each day at the same time. [DISCONTINUED] gabapentin (Neurontin) 400 MG capsule TAKE 1 CAPSULE IN THE MORNING, EVENING, AND BEFORE BEDTIME 270 capsule 3 No current facility-administered medications on file prior to visit. I have reviewed and reconciled the history and medication list with the patient today. Allergies Allergen Reactions Hydrocodone GI intolerance and Unknown Sulfa Antibiotics Unknown Bupropion Rash and Unknown Social History Tobacco Use Smoking status: Every Day Current packs/day: 0.50 Types: Cigarettes Smokeless tobacco: Never Tobacco comments: 6-10 cigarettes/day Vaping Use Vaping status: Never Used Substance Use Topics Alcohol use: Yes Comment: 1-2 drinks 2-4 times/month, 1-2 cups per day(soda) Drug use: Defer Family History Problem Relation Name Age of Onset Hypertension Father Past Medical History: Diagnosis Date Anxiety Arthritis Colon polyps 2013 Depression Dysfunction of left eustachian tube Ear congestion Fibromyalgia Gall bladder disease 2008 History of migraine headaches Hypertension Lupus Migraine headache 06/12/2023 Pelvic pain 2012 Right lower quadrant pain 08/04/2016 ER- CT scanw as normal. Past Surgical History: Procedure Laterality Date CHOLECYSTECTOMY 2006 COLONOSCOPY colonoscopy with biopsy;Disease:Polyps, colon COLONOSCOPY 10/03/2022 ENDOMETRIAL ABLATION 2015 Uterine lining ablation HYSTERECTOMY 2017 PELVIC LAPAROSCOPY 2014 laparoscopy-diagnostic;Disease:pelvic pain Dr. Cardenas Dx. Adhesions PA COLONOSCOPY THRU STOMA,BIOPSY Disease:Polyps, colon URETERAL STENT PLACEMENT 2014 Dr. Martinez Visit Vitals BP 122/82 Pulse 83 Ht 5' 4 Wt 208 lb SpO2 98% BMI 35.70 kg/m?? Smoking Status Every Day BSA 2.06 m?? Review of Systems Respiratory: Negative for shortness of breath. Psychiatric/Behavioral: Positive for depression. Objective Physical Exam Constitutional: Appearance: Normal appearance. HENT: Head: Normocephalic. Nose: Nose normal. Mouth/Throat: Mouth: Mucous membranes are moist. Pharynx: Oropharynx is clear. Eyes: Conjunctiva/sclera: Conjunctivae normal. Cardiovascular: Rate and Rhythm: Normal rate and regular rhythm. Pulmonary: Effort: Pulmonary effort is normal. Breath sounds: Normal breath sounds. Musculoskeletal: General: Tenderness present. Arms: Comments: Trigger point tenderness Skin: General: Skin is warm and dry. Neurological: General: No focal deficit present. Mental Status: She is alert and oriented to person, place, and time. Psychiatric: Mood and Affect: Mood normal. Behavior: Behavior normal. Thought Content: Thought content normal. Judgment: Judgment normal. Assessment/Plan Problem List Items Addressed This Visit Fibromyalgia - Primary Will wean down on Gabapentin Consider retrying Pregabalin Relevant Medications oxyCODONE-acetaminophen (Percocet) 5-325 MG tablet gabapentin (Neurontin) 300 MG capsule Anxiety Patient's Medicine is effective at controlling symptoms at current dose and frequency. PDMP reviewed with no evidence of overuse and abuse D/W patient to avoid use of benzodiazepines when consuming alcohol Advised against operating heavy machinery and driving long distances while on medicines. Relevant Medications busPIRone (Buspar) 5 MG tablet Chronic low back pain Has a follow-up with Pain Management Ablation on March 07, 2025 Had results with facet improvement Medication choice and dosage is appropriate for patient's current medical conditions. Patient will continue to be required to be seen in our office at least every three months for monitoring. At eachfollow up visit I will reassess the patient's need for the medication. Patient is to have this medication prescribed only through this office. Failure to follow the rules and regulations will result in tapering and discontinuation of medications if applicable. Patient verbalized understanding. OARRS Report was reviewed for this patient. Relevant Medications oxyCODONE-acetaminophen (Percocet) 5-325 MG tablet No follow-ups on file. documented in this encounter Plan of Treatment DateTypeDepartmentCare Team (Latest Contact Info)Awbhsordlcb23/09/2025 2:30 PM ESTOffice Visit [facility] [place] [facility] [address] [facility] 110 [place] [phone] Evangelist Saucedo MD 112 [facility] 110 [place] [address] documented as of this encounter Visit Diagnoses Diagnosis Fibromyalgia- Primary Unspecified myalgia and myositis Chronic low back pain, unspecified back pain laterality, unspecified whether sciatica present Anxiety Anxiety state, unspecified documented in this encounter Care Teams Team MemberRelationshipSpecialtyStart DateEnd Date Evangelist Saucedo MD 112 [facility] 110 [place] [address] [facility] - [facility] Ghislaine Cain KEYMODULE ASSEMBLY MACHINE TENDER [address] [facility] 110 [place] [address] [facility] Evangelist Saucedo MD [address] [address] Family Medicine09/10/22documented as of this encounter
--- OUTSIDE RECORDS SUMMARY | 2025-03-07 08:09 | XMS_ITS | Encounter Summary ---
Author Organization [facility] Address [address] [facility] [place] [address] Care Team Providers Care Corn Husk Baler Name Role Phone Evangelist Saucedo MD Primary Care Provider [phone] Evangelist Saucedo MD Unavailable Ghislaine Cain NP Unavailable Reason for Visit * ReasonCommentsMed Refill Encounter Details DateTypeDepartmentCare Team (Latest Contact Info)Ugvfbuuifxd28/28/2025Refill [facility] [address] [place] [address] [place] [phone] Ghislaine Cain NP [address] [place] [address] [place] [address] Fibromyalgia Social History Tobacco UseTypesPacks/DayYears UsedDateSmoking Tobacco: Every DayCigarettes Smokeless Tobacco: Never Comments:6-10 cigarettes/day Alcohol UseStandard Drinks/WeekCommentsYes0 (1 standard drink = 0.6 oz pure alcohol)1-2 drinks 2-4 times/month, 1-2 cups per day(soda)PHQ-2AnswerDate RecordedPatient Health Questionnaire-2 Qcuwy911CommentsUnknown Sex and Gender InformationValueDate RecordedSex Assigned at BirthNot on file Legal YqoRlrmvx66/15/2023 7:11 PM EDTGender IdentityNot on fileSexual OrientationNot on filedocumented as of this encounter Plan of Treatment DateTypeDepartmentCare Team (Latest Contact Info)Hpcbszmkisc53/09/2025 2:30 PM ESTOffice Visit [facility] [place] [facility] [address] [facility] 110 [place] [address] Evangelist Saucedo MD [address] [facility] 110 [place] [address] documented as of this encounter Visit Diagnoses Diagnosis Fibromyalgia Unspecified myalgia and myositis documented in this encounter Care Teams Team MemberRelationshipSpecialtyStart DateEnd Date Evangelist Saucedo MD [address] [facility] 110 [place] [address] [facility] - [facility]22 Ghislaine Cain, SHIFT FOREMAN [address] [facility] 110 [place] [address] PCP - [facility]01/26/25 Evangelist Saucedo MD [address] [facility] 110 [place] [address] Family Medicine09/10/22documented as of this encounter
--- OUTSIDE RECORDS SUMMARY | 2025-03-07 08:09 | XMS_ITS | Encounter Summary ---
Author Organization [facility] Address [address] [place] [address] Care Team Providers Care Sheet Metal Duct Installer Apprentice Name Role Phone Evangelist Saucedo MD Primary Care Provider [phone] Evangelist Saucedo MD Unavailable Ghislaine Cain MATHEMATICAL SCIENTIST Unavailable [phone] Encounter Details DateTypeDepartmentCare Team (Latest Contact Info)Pbepicqammt98/04/2025Travel Social History Tobacco UseTypesPacks/DayYears UsedDateSmoking Tobacco: Every DayCigarettes Smokeless Tobacco: Never Comments:6-10 cigarettes/day Alcohol UseStandard Drinks/WeekCommentsYes0 (1 standard drink = 0.6 oz pure alcohol)1-2 drinks 2-4 times/month, 1-2 cups per day(soda)PHQ-2AnswerDate RecordedPatient Health Questionnaire-2 Epyks17505/01/2024CommentsUnknown Sex and Gender InformationValueDate RecordedSex Assigned at BirthNot on file Legal EliVivbyf25/15/2023 7:11 PM EDTGender IdentityNot on fileSexual OrientationNot on filedocumented as of this encounter Functional Status * Over the past 2 weeks, how often have you been bothered by any of the following problems?QuestionAnswerDate of AssessmentAuthorLittle interest or pleasure in doing thingsNot at all03/01/2025 7:31 AM Katya Guillen MA Feeling down, depressed, or hopelessNot at all03/01/2025 7:31 AM Katya Guillen MAPatient Health Questionnaire-2 Apcmp60605/01/2024 7:31 AM Katya Guillen MA documented as of this encounter Plan of Treatment DateTypeDepartmentCare Team (Latest Contact Info)Jydntyblqzx01/09/2025 2:30 PM ESTOffice Visit [facility] [place] [facility] [address] [facility] 110 [place] [address] Evangelist Saucedo MD [address] [facility] 110 [place] [address] documented as of this encounter Visit Diagnoses Not on filedocumented in this encounter Care Teams Team MemberRelationshipSpecialtyStart DateEnd Date Evangelist Saucedo MD [address] [facility] 110 [place] [address] [facility]/10/22 Ghislaine Cain MATHEMATICAL SCIENTIST [address] [facility] 110 [place] [address] [facility] Evangelist Saucedo MD [address] [facility] 110 [place] [address] [facility]09/10/22documented as of this encounter
--- OUTSIDE RECORDS SUMMARY | 2025-03-07 08:09 | XMS_ITS | Encounter Summary ---
Author Organization [facility] Address [address] [facility] [place] [address] Care Team Providers Care Sensitized Paper Tester Name Role Phone Evangelist Saucedo MD Primary Care Provider Evangelist Saucedo MD Unavailable Ghislaine Cain GAMING PIT BOSS Unavailable [phone] Reason for Referral * Medications - AuthorizedSpecialtyDiagnoses / ProceduresReferred By Contact Referred To Contact Diagnoses Systemic lupus erythematosus, unspecified SLE type, unspecified organ involvement status (HCC) Ghislaine Cain NP [address] [facility] 110 [place] [address] Phone: tel: fax: Referral IDStatusReasonStart DateExpiration DateVisits RequestedVisits [id number]/28/20254/ Reason for Visit * ReasonCommentsMed Refill Encounter Details DateTypeDepartmentCare Team (Latest Contact Info)Riexurbntsb22/28/2025Refill [facility] [place] [facility] [address] [place] [address] [place] [phone] Cristiane Huffman PA [address] [place] [address] [place] [address] Systemic lupus erythematosus, unspecified SLE type, unspecified organ involvement status (HCC) Social History Tobacco UseTypesPacks/DayYears UsedDateSmoking Tobacco: Every DayCigarettes Smokeless Tobacco: Never Comments:6-10 cigarettes/day Alcohol UseStandard Drinks/WeekCommentsYes0 (1 standard drink = 0.6 oz pure alcohol)1-2 drinks 2-4 times/month, 1-2 cups per day(soda)PHQ-2AnswerDate RecordedPatient Health Questionnaire-2 Oowjk577CommentsUnknown Sex and Gender InformationValueDate RecordedSex Assigned at BirthNot on file Legal BrpDthtff11/15/2023 7:11 PM EDTGender IdentityNot on fileSexual OrientationNot on filedocumented as of this encounter Plan of Treatment DateTypeDepartmentCare Team (Latest Contact Info)Xokacpuvqql55/09/2025 2:30 PM ESTOffice Visit [facility] [address] [facility] 110 [place] [phone] Evangelist Saucedo MD [address] [facility] 110 [place] [address] documented as of this encounter Visit Diagnoses Diagnosis Systemic lupus erythematosus, unspecified SLE type, unspecified organ involvement status (HCC) documented in this encounter Care Teams Team MemberRelationshipSpecialtyStart DateEnd Date Evangelist Saucedo MD [address] [facility] 110 [place] [address] [facility] - [facility]09/10/22 Ghislaine Cain NP [address] [facility] 110 [place] [address] [facility]01/[facility] Evangelist Saucedo MD [address] [facility] 110 [place] [address] Family Medicine09/10/22documented as of this encounter
--- OUTSIDE RECORDS SUMMARY | 2025-03-07 08:09 | XMS_ITS | Encounter Summary ---
Author Organization [facility] Address [address] [facility] [place] [address] Care Team Providers Care Corduroy Cutter Operator Name Role Phone Evangelist Saucedo MD Primary Care Provider [phone] Evangelist Saucedo MD Unavailable Ghislaine Cain HAND SPRAYER Unavailable Encounter Details DateTypeDepartmentCare Team (Latest Contact Info)Qmdqoltublf37/30/2025bstract [facility] [address] [facility] 110 [place] [phone] Evangelist Saucedo MD 112 [facility] 110 [place], [place] [address] Social History Tobacco UseTypesPacks/DayYears UsedDateSmoking Tobacco: Every DayCigarettes Smokeless Tobacco: Never Comments:6-10 cigarettes/day Alcohol UseStandard Drinks/WeekCommentsYes0 (1 standard drink = 0.6 oz pure alcohol)1-2 drinks 2-4 times/month, 1-2 cups per day(soda)PHQ-2AnswerDate RecordedPatient Health Questionnaire-2 Rdisg848CommentsUnknown Sex and Gender InformationValueDate RecordedSex Assigned at BirthNot on file Legal VatDemmlx17/15/2023 7:11 PM EDTGender IdentityNot on fileSexual OrientationNot on filedocumented as of this encounter Plan of Treatment DateTypeDepartmentCare Team (Latest Contact Info)Fnnzyyxtvqq62/09/2025 2:30 PM ESTOffice Visit [facility] [address] [facility] 110 [place] [address] Evangelist Saucedo MD [address] [facility] 110 [place] [address] documented as of this encounter Visit Diagnoses Not on filedocumented in this encounter Care Teams Team MemberRelationshipSpecialtyStart DateEnd Date Evangelist Saucedo MD [address] [facility] 110 [place] [address] [facility]09/10/22 Ghislaine Cain HAND SPRAYER [address] [facility] 110 [place] [address] [facility]01/[facility] Evangelist Saucedo MD [address] [facility] 110 [place] [address] Family Medicine09/10/22documented as of this encounter
--- OUTSIDE RECORDS SUMMARY | 2025-03-07 08:09 | XMS_ITS | Clinical Summary ---
Author Organization [facility] Healthcare Address [address] [place] [address] Care Team Providers Care Freight [employer] Name Role Phone Evangelist Murphy MD Primary Care Provider [phone] Evangelist Murphy MD Unavailable Joan Brody LOOM FIXER APPRENTICE Unavailable [phone] Allergies Active AllergyReactionsCriticalityNoted DateCommentsBupropionRash,UnknownLow 04/02/2021HydrocodoneGI intolerance,Kcdzfys0604/02/2021ulfa AntibioticsUnknown 09/18/2022 Medications MedicationSigDispense QuantityRefillsLast FilledStart DateEnd DateStatus cholecalciferol (Vitamin D3) 25 MCG (1000 UT) tablet 1 (one) time each day at the same time.Active zinc 30 MG tablet 1 (one) time each day at the same time.Active metoprolol succinate XL (Toprol-XL) 50 MG 24 hr tablet Indications:AnxietyTAKE 1 TABLET BY MOUTH EVERY DAY 100 tablet 5Active fremanezumab (Ajovy) 225 MG/1.5ML auto-injector Indications:Intractable chronic migraine without aura and with status migrainosusINJECT 1 PEN UNDER SKIN ONCE EVERY 30 DAYS 1 each 5Active venlafaxine XR (Effexor XR) 150 MG 24 hr capsule Indications:Recurrent major depressive disorder, in partial remissionTake 2 capsules (300 mg) by mouth Daily Do not crush or chew. 60 capsule 506Active esomeprazole (NexIUM) [address] capsule Indications:Gastro-esophageal reflux disease without esophagitisTake 1 capsule (40 mg) by mouth in the morning. Take before meals. Do not open capsule. 90 capsule [id number] predniSONE (Deltasone) 10 MG tablet Indications:FibromyalgiaTAKE 1 [...] UP TO 14 DAYS 56 tablet 5Active oxyCODONE-acetaminophen (Percocet) 5-325 MG tablet Indications:Fibromyalgia,Chronic low back pain, unspecified back pain laterality, unspecified whether sciatica presentTake 1 tablet by mouth in the morning and at noon for 10 days 20 tablet /5Active gabapentin (Neurontin) 300 MG capsule Indications:FibromyalgiaTake 1 capsule (300 mg) by mouth in the morning and 1 capsule (300 mg) in the evening and 1 capsule(300 mg) before bedtime. 90 capsule 5Active busPIRone (Buspar) 5 MG tablet Indications:AnxietyTake 1 tablet (5 mg) by mouth in the morning and 1 tablet (5 mg) in the evening and 1 tablet (5 mg)before bedtime. 90 tablet /tive estradiol (Estrace) 1 MG tablet 1 (one) time each day at the same time.Discontinued(Other) estrogens, conjugated, (Premarin) 0.625 MG tablet Take 0.625 mg by mouth 1 (one) time each day at the same time. 1/2 tab daily as vhvqrr47Discontinued(Other) fluticasone (Flonase) 50 MCG/ACT nasal spray 1 (one) time each day at the same time.Discontinued(Other) gabapentin (Neurontin) 400 MG capsule Indications:FibromyalgiaTAKE 1 CAPSULE IN THE MORNING, EVENING, AND BEFORE BEDTIME 270 capsule Discontinued(Reorder) carisoprodol (Soma) 350 MG tablet Indications:FibromyalgiaTake 1 [...] for up to 14 days 84 tablet Discontinued traMADol (Ultram) 50 MG tablet Indications:Systemic lupus [...] 56 tablet /Discontinued Active Problems ProblemNoted DateDiagnosed DateChronic low back pain03/01/2025 Assessment & Plan (03/01/2025 2:55 PM EST): Has a follow-up with Pain Management Ablation [...] OARRS Report was reviewed for this patient. Migraine eabugxnl59/15/2024 Assessment & Plan (02/16/2024 9:39 AM EDT): Do the Nurtec every other day towards end of month Oxwokjn8311/26/2022 Assessment & Plan (03/01/2025 3:00 PM EST): Patient's Medicine is effective at controlling symptoms at current dose and frequency. PDMP reviewed with no evidence of overuse and abuse D/W patient to avoid use of benzodiazepines when consuming alcohol Advised against operating heavy machinery and driving long distances while on medicines. Assessment & Plan (06/21/2024 9:30 AM EST): [...] (11/26/2022 11:56 AM EDT): Consider Paxil F/U 1st week of January Recurrent major depressive disorder, in partial tyqljilob25/01/2023 Assessment & Plan (02/16/2024 9:35 AM EDT): This is a chronic medical condition that is stable since last assessment. No changes in treatment are suggested at this time. Continue Current meds. Assessment & Plan (11/26/2022 11:57 AM EDT): Sunlight and exercise Personal history of colonic aedojl6810/17/2022lood in stool10/17/2022djustment disorder with cxtrnrp7309/18/2022ysfunction of left eustachian tube09/18/2022Ear pvhyknnikd20/24/2023Elevated antinuclear antibody (YANICK) level09/18/2022 Assessment & Plan (01/27/2023 10:08 AM EDT): F/U with Rhematology Bgwkxzudmjff54/24/2023 Assessment & Plan (03/01/2025 2:57 PM EST): Will wean down on Gabapentin Consider retrying Pregabalin Hot cosruoc9409/18/2022 Assessment & Plan (11/26/2022 11:57 AM EDT): Black Cohash no relief Hot flashes due to egsfvpdua54/24/2023Menopausal and postmenopausal disorder 09/18/2022Other altxuvtj49/24/7323Ztzqgm51/24/2023Status post hysterectomy 09/18/2022Systemic lupus iqoqiiqdziwbt63/24/2023Tension pvgijzac16/24/2023 Encounters DateTypeDepartmentCare FbhsIeftpmpmzma34/04/2025 2:30 PM ESTOffice Visit [facility] [address] [place] [address] Evangelist Murphy MD Fibromyalgia (Primary Dx); Chronic low back pain, unspecified back pain laterality, unspecified whether sciatica present; Kwidhhd6303/01/20256186Mqidvz77/30/2025bstract [facility] [address] [place] [address] Evangelist Murphy MD 02/22/2025[facility] [address] [place] [address] Joan Brody NP Pkczrnfbsofg69/28/2025Refill [facility] [address] [place] [address] Cristiane Huffman PA Systemic lupus erythematosus, unspecified SLE type, unspecified organ involvement status (HCC)02/09/2025[facility] [address] [place] [address] Cristiane Huffman PA Systemic lupus erythematosus, unspecified SLE type, unspecified organ involvement status (HCC); Mhirgfttrrpp97/09/2025Refill [facility] [address] [place] [address] Evangelist Murphy MD Mixed qkrvmdsxxaprss60/08/2025Refill [facility] [address] [place] [address] Cristiane Huffman PA Adjustment disorder with hemnmim9901/28/2025[facility] [address] [place] [address] Cristiane Huffman PA Fibromyalgia; Systemic lupus erythematosus, unspecified SLE type, unspecified organ involvement status (HCC); Adjustment disorder with jvbnuxv4301/27/2025[facility] [address] [place] [address] Cristiane Huffman PA Adjustment disorder with anxiety; Fibromyalgia; Systemic lupus erythematosus, unspecified SLE type, unspecified organ involvement status (HCC)01/27/2025Refill [facility] [address] [facility] [address] [place] [address] Cristiane Huffman PA Fibromyalgia; Systemic lupus erythematosus, unspecified SLE type, unspecified organ involvement status (HCC)01/25/2025Refill [facility] [address] [facility] [address] [place] [address] Evangelist Murphy MD Intractable chronic migraine with aura with status migrainosus ; Srgwtx1801/24/2025 2:45 PM EDTAncillary Procedure N[facility] [address] [place] [address] Abnormal ultrasound of lddxbd3001/24/2025 2:30 PM EDTAncillary Procedure N[facility]S [facility] [address] [place] [address] Abnormal mammogram of right dkskda1901/24/20257512Zejmjl79/25/2025Results Follow-Up [facility] [address] [facility] [address] [place] [address] Myla Killian LPN MR LUMBAR SPINE WO CON5Abstract [facility] [address] [facility] [address] [place] [address] Evangelist Murphy MD 01/14/2025linisync Result Encounter N[facility]S External Department Unsolicited Joan Brody NP 01/14/2025Refill [facility] [address] [facility] [address] [place] [address] Cristiane Huffman PA Systemic lupus erythematosus, unspecified SLE type, unspecified organ involvement status (HCC)01/14/2025Refill [facility] [address] [facility] [address] [place] [address] Cristiane Huffman PA Fibromyalgia; Systemic lupus erythematosus, unspecified SLE type, unspecified organ involvement status (HCC)01/05/2025Refill [facility] [address] [facility] [address] [place] [address] Cristiane Huffman PA Adjustment disorder with dxgucrs7101/03/2025Refill [facility] [address] [facility] [address] [place] [address] Cristiane Huffman PA Hfiiosvwljcx27/05/2025Orders Only [facility] [address] [facility] [address] [place] [address] Evangelist Murphy MD Abnormal mammogram of right breast; Abnormal ultrasound of zxyojy8912/28/2024Refill [facility] [address] [facility] [address] [place] [address] Cristiane Huffman PA Systemic lupus erythematosus, unspecified SLE type, unspecified organ involvement status (HCC)12/21/20[facility] [address] [facility] [address] [place] [address] Joan Brody NP Wgepthdfafcq20/26/2025bstract [facility] [address] [facility] [address] [place] [address] Evangelist Murphy MD 12/20/2024Refill [facility] [address] [facility] [address] [place] [address] Cristiane Huffman PA Awepydezsyqd42/20/2025 11:30 AM EDTOffice Visit [facility] [address] [facility] [address] [place] [address] Joan Brody NP Fibromyalgia (Primary Dx); Systemic lupus erythematosus, unspecified SLE type, unspecified organ involvement status (HCC); Chronic pain syndrome; Lumbar radiculopathy; Gastro-esophageal reflux disease without eqtjhdehazo51/20/2025[facility] [address] [facility] [address] [place] [address] Joan Brody NP Systemic lupus erythematosus, unspecified SLE type, unspecified organ involvement status (HCC)08/20/2025Bamboo flowsheet [facility] [address] [facility] [address] [place] [address] Joan Brody NP 12/15/20249905Mqfdfw84/14/2025Refill [facility] [address] [facility] [address] [place] [address] Evangelist Murphy MD Adjustment disorder with pkixnva1612/06/2024bstract [facility] [address] [facility] [address] [place] [address] Evangelist Murphy MD from Last 3 Months Immunizations ImmunizationAdministration DatesNext DueInfluenza, injectable, MDCK, preservative free, gscftsayxgob81/09/2023,01/18/2022,03/06/2020Influenza, injectable, quadrivalent, preservative free01/26/2022,02/13/2021Moderna Bivalent Booster Wjhkbdvbyod50/20/2023 Family History Medical HistoryRelationNameCommentsHypertensionFatherRelationNameStatusComments FatherDeceasedMotherAlive Social History Tobacco UseTypesPacks/DayYears UsedDateSmoking Tobacco: Every DayCigarettes Smokeless Tobacco: Never Tobacco Cessation:Ready to Q uit: Not Asked; Counseling Given: Yes Comments:6-10 cigarettes/day Alcohol UseStandard Drinks/WeekCommentsYes0 (1 standard drink = 0.6 oz pure alcohol)1-2 drinks 2-4 times/month, 1-2 cups per day(soda)PHQ-2AnswerDate RecordedPatient Health Questionnaire-2 Bfzzl355CommentsUnknown Sex and Gender InformationValueDate RecordedSex Assigned at BirthNot on file Legal EetTgbtuk44/15/2023 7:11 PM EDTGender IdentityNot on fileSexual OrientationNot on file Last Filed Vital Signs Vital SignReadingTime TakenCommentsBlood Jkzaqcqv992/8211 2:40 PM EST Pspnp9986 2:40 PM ESTTemperature--Respiratory Ztep3271 11:35 AM EDTOxygen Ihfmtpdmvj88%03/01/2025 2:40 PM ESTInhaled Oxygen Concentration-- Qifevr61.3 kg (208 lb)03/01/2025 2:40 PM SNBSfczyg154.6 cm (5' 4 )03/01/2025 2:40 PM ESTBody Mass Index35.7105/01/2024 2:40 PM EST Plan of Treatment DateTypeDepartmentCare Team (Latest Contact Info)Idqpndukrkq77/09/2025 2:30 PM ESTOffice Visit [facility] [address] [facility] [address] [place] [address] Evangelist Murphy MD [address] [facility] 110 [place] [address] Health MaintenanceDue DateLast DoneCommentsInfluenza Vaccine (#1)10/25/2025 01/04/2023, 01/26/2022, 01/18/2022, Additional history existsPostponed from 12/27/2024 (Patient Refused)Xpbwfyksw47, 07/14/2024, 07/05/2024OVID-19 WzljiwmRzitrfjrdozn17/20/2023, 05/26/2021, 05/02/2021 Pneumococcal Vaccine: Pediatrics (0 to 5 Years) and At-Risk Patients (6 to 64 Years)Discontinued Procedures Procedure NamePriorityDate/TimeAssociated DiagnosisCommentsBI US BREAST LIMITED GCWHYCgoitet62/29/2025 3:18 PM EDT Abnormal ultrasound of breast BI MAMMOGRAM DIAGNOSTIC TOMOSYNTHESIS IXGNPOmbppyb35/29/2025 3:07 PM EDT Abnormal mammogram of right [...] IS VERY IMPORTANT TO YOUR HEALTH. ??THE [employer] GUIDELINES RECOMMEND THAT WOMEN 40 [...] grossly unremarkable. Authorizing ProviderResult TypeResult StatusEvangelist Murphy MDIMSavanna BI PROCEDURES Final Result * MR LUMBAR SPINE WO CON (01/14/2025 5:15 PM EDT)Anatomical RegionLaterality ModalityOtherSpecimen (Source)Anatomical Location / LateralityCollection Method / VolumeCollection TimeReceived Time01/14/2025 5:15 PM EDT Narrative 01/14/2025 5:18 PM EDT [facility] ?[address] ? [place] [address] ? Magnetic Resonance Report ? Signed ? Patient: WILVER HERNANDEZ L ?MR#: [id number] ?? : 1985 ?Acct:[id number] ?? Age/Sex: 39 / F ?ADM Date: 01/13/25 ?? Loc: MRI ? Attending Dr: JOAN BRODY ? Ordering Physician: JOAN BRODY ?? Date of Service: 01/13/25 ?? Procedure(s): MR lumbar spine wo con ?? Accession Number(s): [id number] ? cc: EVANGELIST MURPHY ; JOAN BRODY ? [facility] ? [address] ? [place] [address] ? Patient Name: ?? WILVER HERNANDEZ ? MRN: [facility]:[id number] ? date: 1985 ?Sex: F ?? Assigned Patient Location: MRI ?? Current Patient Location: ? Accession/Order Number: [id number] ?? Exam Date: 01/13/2025 ??15:10 ?Report Date: [...] ??Conus medullaris terminates normally at L1-L2. ? Clam-vt-fihmohpu multilevel facet arthropathy greatest L4-S1. ??Otherwise no ?? significant disc disease, disc protrusion, central canal or neural from ?? narrowing identified. ??Paraspinal soft tissues are unremarkable. ? MR/MR lumbar spine wo con ?? IMPRESSION: Multilevel wnta-hx-uhmioavx posterior element degeneration ?? greatest lumbosacral junction. ??Otherwise no significant canal or neural ?? foraminal narrowing identified. ? Impression dictated by: Tani Mackenzie M.D. ??01/14/2025 5:15 PM ? Dictation Location: RADIO-PC-29 ? Electronically authenticated by: [id number] ??Y ?? Date: 01/14/2025 ??17:15 ? Dictated By: ?Tani Mackenzie M.D. ? Signed By: ?01/14/25 1718 ? DD/ 1715 ? TD/TT: ? Corner Block Cutter: Procedure Note Radiology, Radiologist, MD - 01/14/2025 [place] [address] Magnetic Resonance Report Signed Patient: WILVER HERNANDEZ LMR#: [id number] : 1985Acct:[id number] Age/Sex: 39 / FADM Date: 01/13/25 Loc: MRI Attending Dr: JOAN BRODY Ordering Physician: JOAN BRODY Date of Service: 01/13/25 Procedure(s): MR lumbar spine wo con Accession Number(s): [id number] cc: EVANGELIST MURPHY ; JOAN BRODY [address] [address] Patient Name: WILVER HERNANDEZ MRN: [id number] date: 1985 Sex: F Assigned Patient Location: MRI Current Patient Location: Accession/Order Number: [id number] Exam Date: 01/13/2025 15:10 Report Date: 01/14/2025 17:15 At the request of: JOAN BRODY Procedure: MR lumbar spine wo con MRI of the lumbar spine performed without contrast INDICATION: Lumbar radiculopathy, back pain, fibromyalgia, lupus COMPARISON: None FINDINGS: Lumbar vertebral heights, alignment, bone marrow signal and disc spaces are preserved. Conus medullaris terminates normally at L1-L2. Kkja-xn-kkrtukkx multilevel facet arthropathy greatest L4-S1. Otherwiseno significant disc disease, disc protrusion, central canal or neural from narrowing identified. Paraspinal soft tissues are unremarkable. MR/MR lumbar spine wo con IMPRESSION: Multilevel xssd-lc-pkuwfvqy posterior element degeneration greatest lumbosacral junction. Otherwise no significant canal or neural foraminal narrowing identified. Impression dictated by: Tani Mackenzie M.D. 01/14/2025 5:15 PM Dictation Location: [place] [address] Electronically authenticated by: [id number] Y Date: 7:15 Dictated By: Tani Mackenzie M.D. Signed By:01/14/258 DD/ 14 TD/TT: Corner Block Cutter: Authorizing ProviderResult TypeResult StatusJoan Brody NPCLINISYNC IMAGING Final Result from Last 3 Months Insurance Care Teams Team MemberRelationshipSpecialtyStart DateEnd Date Evangelist Murphy MD [address] [address] [facility] - [facility] Joan Brody LOOM FIXER APPRENTICE [address] [facility] [address] [place] [address] PCP - [facility]01/26/25 Evangelist Murphy MD [address] [facility] [address] [place] [address] [facility] Medicine09/10/22
[2025-03-07 08:11] VITALS: BP 163/93; PULSE 81; TEMP 36.9; O2SAT 97
[2025-03-07 08:40] VITALS: BP 175/84; PULSE 86; PULSE 88; O2SAT 95
[2025-03-07 08:41] VITALS: BP 162/75
[2025-03-07] MEDS: LIDOCAINE HCL 2% 400 MG/20 ML MDV 16 ML INJ (08:47)
[2025-03-07] MEDS: METHYLPREDNISOLONE ACETATE 40 MG/ML VIAL INJ (08:47)
[2025-03-07] MEDS: BUPIVACAINE HCL 0.25% PF 25 MG/10 ML VIAL 4 ML INJ (08:48)
--- NOTE | 2025-03-07 08:55 | P.ON_ITS ---
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 The site was marked.? Written informed consent was obtained and placed on the chart.? The patient was brought to the medical procedure unit and placed in the prone position.? A timeout was completed verifying correct patient, procedure, positioning, and special requirements.? The skin overlying the target points, the designated medial branch, were prepped and draped in the usual sterile fashion.? The target point was achieved with a 20-gauge 15 cm with a 10 mm curved active tip radiofrequency cannula under direct fluoroscopic visualizati on.? The needle was inserted at level L4 on the right side. Needle tip position was confirmed with lateral fluoroscopic position.? Motor stimulation was carried out at 2 Hz up to 5 volts with the absence of extremity activity.? This was repeated at level L5, S1 on right side.?? Sensory stimulation was carried out.? Concordant pain was realized at the above- mentioned sites.? Then radiofrequency lesioning was carried out times 90 seconds at 80 degrees times 2 lesions at each level.? The radiofrequency probe was removed prior to cannula removal.? The above-mentioned injectate was placed in 1 mL increments.? The needle was removed. The same procedure, with the same steps, was then completed on the left side at the same levels. Insertion sites were covered.? The patient was taken to the postoperative recovery area and monitored for an appropriate length of time before being found suitable for discharge in the company of a responsible adult. Anesthesia: Local Surgeon: Ajay Ortega Pathology: none sent Condition: stable Disposition: no change
== END 2025-03-07 09:00 | disposition home or self-care (01) ==
PROVIDERS: PCP Family Medicine; Visit Provider Anesthesiology
DX: M47.816 Spondylosis without myelopathy or radiculopathy, lumbar region (principal); M54.50 Low back pain, unspecified
CPT/HCPCS: 64635; 64636; J0665; J1010

== ENCOUNTER 2025-04-07 13:09 | Outpatient (OUT) | payer BC, SELFPAY ==
--- NOTE | 2025-04-07 13:15 | PM.CN ---
Consult Note: HPI Data of Consult Patient: known to practice within the last 3 years Consult date: 04/07/25 Requesting Physician: Juanita Cooley NP Primary Care Provider: MATTHEW MURPHY Consult Narrative Reason for consult: low back pain Narrative: Ramy Hernandez a pleasant 39 year old female presents for evaluation and management of chronic low back pain unresponsive to > 6 weeks of HEP, heat, ice, tylenol, NSAIDs. currently utilizing gabapentin, tramadol, klonopin, percocet, effexor without improvement. recently underwent bilateral L4-5 L5-S1 facet RFA with significant relief. pt noting significant bilateral SIJ pain, neck pain, and middle back pain without injury or fall. pain 9/10 aching sharp increasing to 10/10 with twisting, standing, walking, bending, activity cc:: CC: Juanita Cooley NP Review of Systems ROS Musculoskeletal Reports: back pain and neck pain PFSH PFSH Medical History Obesity ?E66.9 - Obesity, unspecified (ICD-10) Upper back pain ?M54.9 - Dorsalgia, unspecified (ICD-10) Neck pain ?M54.2 - Cervicalgia (ICD-10) Low back pain ?M54.50 - Low back pain, unspecified (ICD-10) Systemic lupus ?M32.9 - Systemic lupus erythematosus, unspecified (ICD-10) Fibromyalgia ?M79.7 - Fibromyalgia (ICD-10) Depression ?F32.A - Depression, unspecified (ICD-10) Anxiety ?F41.9 - Anxiety disorder, unspecified (ICD-10) Acid reflux ?K21.9 - Gastro-esophageal reflux disease without esophagitis (ICD-10) Kidney stone ?N20.0 - Calculus of kidney (ICD-10) Smoker ?F17.200 - Nicotine dependence, unspecified, uncomplicated (ICD-10) High cholesterol ?E78.00 - Pure hypercholesterolemia, unspecified (ICD-10) Hypertension ?I10 - Essential (primary) hypertension (ICD-10) Surgical History History of endometrial ablation ?Z98.890 - Other specified postprocedural states (ICD-10) H/O laparoscopy ?Z98.890 - Other specified postprocedural states (ICD-10) Hx of cystoscopy ?Z98.890 - Other specified postprocedural states (ICD-10) H/O: hysterectomy ?Z90.710 - Acquired absence of both cervix and uterus (ICD-10) H/O rectal polypectomy ?Z98.890 - Other specified postprocedural states (ICD-10) ?Z87.19 - Personal history of other diseases of the digestive system (ICD-10) Hx of cholecystectomy ?Z90.49 - Acquired absence of other specified parts of digestive tract (ICD-10) Meds Home Medications and Allergies Home Medications ?Medication ?Instructions ?Recorded ?Confirmed ?Type NURTEC 01/19/25 History atorvastatin 20 mg tablet (Lipitor) 20 mg PO DAILY 01/19/25 03/07/25 History carisoprodol 350 mg tablet (Soma) 350 mg PO QID 01/19/25 03/07/25 History clonazepam 1 mg tablet (Klonopin) 1 mg PO BID 01/19/25 03/07/25 History fremanezumab-vfrm 225 mg/1.5 mL mg subcut .EVERY MONTH 01/19/25 History subcutaneous auto-injector (Ajovy) gabapentin 400 mg capsule 400 mg PO TID 01/19/25 03/07/25 History metoprolol succinate 50 mg 50 mg PO DAILY 01/19/25 03/07/25 History tablet,extended release 24 hr (Toprol XL) prednisone 10 mg tablet 10 mg PO DAILY 01/19/25 03/07/25 History tramadol 50 mg tablet 50 mg PO Q4H 01/19/25 03/07/25 History venlafaxine 150 mg 150 mg PO DAILY 01/19/25 03/07/25 History capsule,extended release 24 hr (Effexor XR) buspirone 5 mg tablet 5 mg PO BID 03/07/25 03/07/25 History diazepam 10 mg tablet 10 mg PO TID PRN muscle spasm 03/07/25 03/07/25 History Allergies Allergy/AdvReac Type Severity Reaction Status Date / Time bupropion Allergy Unknown Unknown Verified 03/07/25 08:15 Sulfa (Sulfonamide Allergy Unknown Unknown Verified 03/07/25 08:15 Antibiotics) Exam Constitutional Documenting provider has reviewed patient's vital signs: yes Common normals: no apparent distress, oriented x3 and alert General appearance: cooperative HENMT Common normals: normocephalic, hearing grossly normal bilaterally and moist oral mucous membranes Head and scalp: normocephalic Eye Common normals: PERRL Pupil: PERRL Neck & C-Spine Common normals: full ROM General: normal visual inspection Cervical spine: pain with cervical ROM, cervical spine tenderness, paracervical muscle tenderness, paracervical muscle spasm and trapezius muscle tenderness bilateral Other: positive facet loading and tenderness C3-7 diffuse myofascial pain and hyperalgesia Chest Common normals: inspection of chest normal Respiratory Common normals: normal respiratory effort, no retractions and no use of accessory muscles Back & Pelvis Lumbar spine/lower back: ROM limited; no pain with ROM and no lumbar spinal tenderness Sacroiliac joints: SI joint(s) abnormal Other: bilateral sij positive pan(patricks), gaenslens, thigh thrust, compression test Neuro Common normals: oriented x3 Sensorium/orientation: alert Psych Common normals: mental status grossly normal, thought process normal, cooperative, affect normal, speech normal and activity/motor behavior normal Speech: normal speech Thought process: normal thought process Results Additional Findings Additional findings: If on a controlled substance or opioids, I have checked an [place] report on this patient and there are no aberrancies noted in the prescribing history.??If on a controlled substance or opioid a drug screen was completed and reviewed within the last year, and if there has not been a drug screen completed we ordered one today to monitor higher risk, state monitored pain medication use. As part of providing excellent, safe, comprehensive care, the following was completed at our patient's visit: 1. A medication reconciliation and review to ensure accurate knowledge of current/active medications, including asking our patients to inform us about any [id number] medications or herbal remedies/nutritional supplements/alternative remedies. 2. A review to specifically ensure our patients have had annual screening for screening for depression, screening for tobacco use, and screening for unhealthy alcohol use. For concerning screenings had a discussion with the patient, provided patient education, and recommended follow-up with primary care provider when appropriate. If patient noted with a risk of falling, they received education on strength, gait, and balance training to prevent future risk of falling. Portions of this note may have been carried over from the previous visit and updated as appropriate. Please note this office utilizes paper charting in addition to the electronic medical record. A list of current medications, vitals, and PMH is available there as the clinical staff outside of myself do not have access to [facility] charting during the clinic day operations. As part of providing quality comprehensive care the current medications, vitals, and PMH were reviewed in the paper chart. Assessment and Plan Assessment and Plan (1) Lumbar spondylosis: Assessment and Plan: bilateral L4-5 L5-S1 facet RFA providing >80% improvement in facet mediated low back pain (2) Myofascial pain syndrome of thoracic spine: (3) Fibromyalgia: Assessment and Plan: encouraged HEP, stretching, yoga/pilates/aquatherapy, diet changes specifically anti-inflammatory diets eliminating processed foods/sugars, weight loss (4) Sacroiliitis: (5) Cervical spondylosis: Plan 39 year old female with chronic pain secondary to facet arthropathy and fibromyalgia, at this time time will update cervical xray and refer to PT for neck pain and upper back pain/myofascial pain. can consider cervical mbbs/rfa in the future. continue medication management through PCP and outside specialisits, pt on tylenol, motrin, tramadol, percocet, effexor, buspar, clonazepam. f/u 6 weeks to review imaging and response to PT
== END 2025-04-07 13:10 | disposition home or self-care (01) ==
LOC: PM 13:09
PROVIDERS: PCP Family Medicine; Visit Provider Nurse Practitioner
DX: M47.816 Spondylosis without myelopathy or radiculopathy, lumbar region (principal); M79.18 Myalgia, other site; M46.1 Sacroiliitis, not elsewhere classified; M47.812 Spondylosis without myelopathy or radiculopathy, cervical region
CPT/HCPCS: G0463